=== PATIENT | female | born 1935 | race Caucasian/White ===

== ENCOUNTER 2020-11-23 23:11 | Observation (INO) | payer MEDICARE, BC, SELFPAY ==
--- NOTE | ~2020-11-23 | XR_ITS ---
EXAMINATION: XR chest 2V DATE: 11/23/2020 23:47 INDICATION: Chest pain. Shortness of breath. TECHNIQUE: Frontal and lateral views of the chest were obtained. COMPARISON: Chest 2 views 03/26/2019, CT abdomen and pelvis 09/18/2017 FINDINGS: There is mild atelectasis in the lower lung zones. No pleural effusion or pneumothorax. The heart size is normal. There are changes of anterior fusion procedure in cervical spine. Surgical cli ps in the right upper quadrant are likely from cholecystectomy. IMPRESSION: 1. Mild atelectasis in the lower lung zones. Reviewed, dictated and finalized at location A. RECONDITIONER
[2020-11-23 23:11] VITALS: BP 137/84; PULSE 80; RESP 18; TEMP 36.8; O2SAT 98
--- NOTE | 2020-11-23 23:17 | ECG_ITS ---
Measurements Intervals [place] Rate: 77 P: 16 AR: 148 QRS: -32 QRSD: 106 T: -3 QT: 389 QTc: 441 Interpretive Statements SINUS RHYTHM LEFT AXIS DEVIATION VOLTAGE CRITERIA FOR LVH BORDERLINE R WAVE PROGRESSION, ANTERIOR LEADS BORDERLINE T WAVE ABNORMALITY- INFERIOR LEADS BASELINE ARTIFACT- I, II, III, AVR, AVL, AVF BORDERLINE ECG Electronically Signed On 11-24-2020 6:49:25 [employer] by Constantino Iraheta D.O.
[2020-11-23 23:47] LABS: Basophils Percent Auto 0.4 % (0.2-1.2); Eosinophils Absolute Auto 0.3 K/mm3 (0-0.3); Eosinophils Percent Auto 3.7 % (0-4.4); Hematocrit 39.7 % (37.0-47.0); Hemoglobin 12.3 g/dL (12.0-15.0); Immature Granulocyte Absolute 0.02 K/mm3 (0.00-0.031); Immature Granulocyte Percent A 0.2 % (0-0.5); Lymphocytes Percent Auto 21.3 % (18.3-44.2); Mean Corpuscular Hemoglobin 28.3 pg (26-34); Mean Corpuscular Volume 91.5 fl (80-100); Mean Platelet Volume 10.1 fl (7.4-10.4); Monocytes Absolute Auto 1.2 K/mm3 (0.1-0.6); Monocytes Percent Auto 13.3 % (2.6-8.5); Neutrophils Absolute Auto 5.4 K/mm3 (1.3-6.7); Neutrophils Percent Auto 61.1 % (45.5-73.1); Platelet Count Result 244 k/mm3 (150-375); Red Blood Count 4.34 M/mm3 (4.2-5.4); Red Cell Distribution Width 15.2 % (11.5-14.5); White Blood Count 8.9 K/mm3 (4.5-10.0)
[2020-11-23 23:56] LABS: INR 0.9; Prothrombin Time 12.4 Seconds (11.1-14.7)
[2020-11-23 23:57] LABS: Partial Thromboplastin Time 25.7 SECONDS (22.3-36.8)
[2020-11-23 23:58] LABS: Anion Gap 3 mmol/L (8-16); Blood Urea Nitrogen 28 mg/dL (7-17); Calcium 8.5 mg/dL (8.4-10.2); Carbon Dioxide 33 mmol/L (22-30); Chloride 106 mmol/L (98-107); Estimated CRCL calculation 35 ml/min; Estimated Glomerular Filt Rate 53; Glucose 138 mg/dL (65-105); Potassium 4.7 mmol/L (3.4-5.0); Sodium 142 mmol/L (137-145)
[2020-11-24] VITALS (14 sets, daily range): BP systolic 104–159; BP diastolic 57–96; PULSE 69–77; RESP 14–20; TEMP 35.9–36.5; O2SAT 95–98; BMI 33.7
--- NOTE | 2020-11-24 | ECHO_ITS ---
Patient Info Name: Nirmala Julian Age: 85 years : 1935 Gender: Female Ht: 60 in Wt: 172 lbs BSA: 1.85 m2 HR: 71 bpm BP: 133 / 57 mmHg Heart Rhythm: Sinus Rhythm Technical Quality: Good Exam Date: 11/24/2020 2:36 PM Exam Location: [facility] Pulmonary Patient Status: Outpatient Admit Date: 11/24/2020 Staff Ordering Physician: Angelina Blair PA-C Program Manager Rn: Ammon Krishna, SANTINO, RT Attending Provider: Angelina Blair PA-C Referring Physician: Johnnie JOAQUIN; Exam Type: CA echo dop color flow w con Study Info Indications R07.89 - Other chest pain Complete two-dimensional, color flow and Doppler transthoracic echocardiogram is performed with contrast to opacify the left ventricle and to improve the deliniation of the left ventricle endocardial borders. Summary 1. Left ventricular systolic function is normal, estimated at 60-65%. 2. There is mildly increased left ventricular wall thickness. 3. The left ventricular diastolic function is grade I diastolic dysfunction. 4. There is no aortic valve stenosis. 5. There is mild mitral valve regurgitation. 6. There is mild to moderate tricuspid valve regurgitation. 7. Mild pulmonary hypertension, estimated pulmonary arterial systolic pressure is 37 mmHg. Left Ventricle Left ventricular chamber dimension is normal. Left ventricular systolic function is normal, estimated at 60-65%. There is mildly increased left ventricular wall thickness. The left ventricular diastolic function is grade I diastolic dysfunction. Right Ventricle Right ventricular chamber dimension is normal. Right ventricular systolic function is normal. Left Atria Left atrial chamber dimension is normal. Right Atria Right atrial chamber dimension is normal. Aortic Valve The aortic valve is trileaflet. There is mild aortic valve sclerosis. There is no aortic valve stenosis. There is no aortic valve regurgitation. Pulmonic Valve The pulmonic valve is not well visualized. Mitral Valve The mitral valve has normal leaflets. There is mild mitral valve regurgitation. The mitral valve annulus is mildly calcified. Tricuspid Valve The tricuspid valve leaflets are normal. There is mild to moderate tricuspid valve regurgitation. Mild pulmonary hypertension, estimated pulmonary arterial systolic pressure is 37 mmHg. Pericardium/Pleural The pericardium appears normal. There is trivial pericardial effusion. Inferior Vena Cava Normal inferior vena cava with >50% collapse upon inspiration consistent with normal right atrial pressure, 5 mmHg. Aorta The aortic root size at the sinus of Valsalva is normal. There is mild aortic atherosclerosis. Left Ventricular Outflow Tract Name Value Normal LVOT 2D LVOT Diameter 1.91 cm LVOT Doppler LVOT Peak Gradient 3 mmHg LVOT Mean Gradient 2 mmHg LVOT VTI 23.33 cm LVOT VTI/AV VTI Ratio 0.94 LVOT Stroke Volume 67.04 ml LVOT CO 4.98 l/min LVOT
[2020-11-24 00:10] LABS: Troponin I < 0.012 ng/mL (0.000-0.034)
--- NOTE | 2020-11-24 00:37 | ED.CHESTPAIN ---
HPI - Chest Pain General Chief Complaint: Chest Pain Stated Complaint: left cp 05/09 Time Seen by Provider: 11/23/20 23:23 Source: patient Mode of arrival: EMS Limitations: no limitations History of Present Illness HPI narrative: An 85-year-old female comes into the emergency department from EMS from her nursing facility with complaints of chest pain radiating down to her left arm. Patient states that this started earlier this evening. She notes that she has been uncomfortable enough that she has not been able to go to sleep. Patient states that this does feel somewhat like my other heart attack . The only other history the patient can think of that may be contributing was she did receive her second Covid vaccine today. She notes that she got the shot in the right arm but the pain is going to her left arm however. She denies any other symptoms such as shortness of breath, fatigue, nausea or vomiting. Related Data Home Medications Medication Instructions Recorded Confirmed Zyrtec 10 mg PO DAILY 11/24/20 11/24/20 acidophilus-pectin, citrus cap PO 11/24/20 [Acidophilus Probiotic] alendronate-vitamin D3 1 tablet PO WEEKLY 11/24/20 aluminum-magnesium hydroxide tablet PO 11/24/20 aspirin [Aspir-81] 81 mg PO DAILY 11/24/20 11/24/20 benzonatate 200 mg PO BID 11/24/20 cyclosporine [Restasis] drp 11/24/20 esomeprazole magnesium [Nexium] 40 mg PO DAILY 11/24/20 furosemide [Lasix] 20 mg PO DAILY 11/24/20 hydralazine 11/24/20 hydrocodone-acetaminophen tablet 11/24/20 isosorbide mononitrate 30 mg PO DAILY 11/24/20 11/24/20 levothyroxine 50 mcg PO DAILY 11/24/20 losartan 50 mg PO DAILY 11/24/20 metoprolol succinate 50 mg PO DAILY 11/24/20 11/24/20 mirabegron [Myrbetriq] mg PO 11/24/20 montelukast [Singulair] 10 mg PO DAILY 11/24/20 11/24/20 xnxanzjlvcdd-Ct-hzkm-minerals tablet PO 11/24/20 [Multivitamin-Calcium and Iron] rosuvastatin [Crestor] 20 mg PO DAILY 11/24/20 solifenacin [Vesicare] 5 mg PO DAILY 11/24/20 11/24/20 vitamin B complex [B 1 tablet PO DAILY 11/24/20 11/24/20 Complex-Vitamin B12] Allergies Allergy/AdvReac Type Severity Reaction Status Date / Time adhesive Allergy Unknown Verified 09/18/17 03:56 levofloxacin Allergy Unknown Unverified 09/18/17 03:56 methylprednisolone Allergy Unknown Unverified 09/18/17 03:56 metronidazole Allergy Unknown Verified 09/18/17 03:56 CORTICOSTEROIDS Allergy Unknown Uncoded 01/12/09 14:08 Review of Systems Review of Systems: Narrative: CONSTITUTIONAL: Denies fever, chills, or sweats. EYES: Denies visual changes, redness, or discharge. ENT: Denies rhinorrhea, congestion, sore throat, or otalgia. CARDIOVASCULAR: Denies palpitations, or edema. Endorses chest pain. RESPIRATORY: Denies cough or dyspnea. GASTROINTESTINAL: Denies abdominal pain, nausea, vomiting, or diarrhea. GENITOURINARY: Denies dysuria or hematuria. SKIN: Denies rash or itching. MUSCULOSKELETAL: Denies back pain, joint pain, or myalgia. NEUROLOGIC: Denies headache, numbness, dizziness, or weakness. PSYCHIATRIC: Denies anxiety or depression. Exam Narrative: Exam Narrative: GENERAL: Well-appearing, well-nourished, and in no acute distress. HEAD: Normocephalic, atraumatic. EYES: PERRLA and EOMI. ENT: Nares clear, no rhinorrhea or epistaxis. Mucous membranes moist. NECK: Supple. No adenopathy or masses. No carotid bruits or JVD CHEST: Clear to auscultation. No respiratory distress. No wheezes rales or rhonchi HEART: Regular rate and rhythm. No murmur heard. Normal peripheral pulses. ABDOMEN: Soft, nontender, nondistended, normal active bowel sounds. EXTREMITIES: Normal range of motion. No edema. SKIN: Warm, dry, no rash. NEURO: No focal deficits. Alert and oriented x3. PSYCH: Normal mood and affect. Course Reevaluation(s) Reevaluation #1: Patient updated and provided information. Informed her of plan to observe. Time: 02:22 Consultations Consultation #1: Discussed with PIPPA [place] for hosp
[2020-11-24] MEDS: ASPIRIN 81 MG CHEWABLE TABLET 324 MG PO (02:24)
[2020-11-24] MEDS: NITROGLYCERIN SL 0.4 MG TABLET SUBLINGUAL (02:24)
--- NOTE | 2020-11-24 03:10 | PC.NURSE ---
second nitro sl given [id number] ,
[2020-11-24 05:02] LABS: Troponin I < 0.012 ng/mL (0.000-0.034)
--- NOTE | 2020-11-24 05:27 | ADMGEN ---
This patient, Nirmala Julian, was admitted to IMU Room 205-01. Patient/family oriented to hospital policies and general routines including ID bracelet, bed and alarms, visiting hours, pain management, procedures, bathroom and other care routines, personal items, smoking policy, room service/diet, and visiting hours. Information on how to activate the Rapid Response Team has been discussed. Patient/Family are encouraged to report perceived risks to care and to ask questions if they do not understand what they are told or what they should do.
[2020-11-24 08:11] LABS: Troponin I 0.019 ng/mL (0.000-0.034)
[2020-11-24] MEDS: FUROSEMIDE 20 MG TABLET PO (11:37)
[2020-11-24] MEDS: ASPIRIN 81 MG ENTERIC TABLET PO (11:37)
[2020-11-24] MEDS: MAGNESIUM OXIDE 400 MG TABLET PO (11:37)
[2020-11-24] MEDS: LOSARTAN POTASSIUM 50 MG TABLET PO (11:37)
[2020-11-24] MEDS: METOPROLOL SUCCINATE EXT REL 50 MG TABCR PO (11:37)
[2020-11-24] MEDS: HYDROcodone/acetaminophen (*CRX) 10-325 MG TABLET 1 TAB PO (11:39)
--- NOTE | 2020-11-24 13:51 | PM.IMPN ---
Progress Note: A&P Time Spent With Patient Time with patient: 25 - 35 minutes Subjective Date/time seen: 11/24/20 13:51 Review of Systems Review of Systems: All systems reviewed & are unremarkable except as noted in HPI and below Objective Data Vital Signs Vital Signs: Vital Signs - 24 hr 11/23/20 23:11 11/24/20 00:09 11/24/20 02:23 Temperature 98.2 F Pulse Rate 80 76 75 Respiratory Rate 18 20 14 Blood Pressure 137/84 104/62 147/64 H Pulse Oximetry 98 95 97 11/24/20 02:35 11/24/20 03:43 11/24/20 04:25 Temperature Pulse Rate 76 70 75 Respiratory Rate 18 18 18 Blood Pressure 117/67 113/60 129/66 Pulse Oximetry 95 95 11/24/20 05:15 11/24/20 06:00 11/24/20 06:40 Temperature 96.7 F L 96.7 F L Pulse Rate 72 74 72 Respiratory Rate 20 20 Blood Pressure 130/96 H 130/96 H Pulse Oximetry 98 98 11/24/20 08:00 11/24/20 09:38 11/24/20 12:00 Temperature 97.5 F L 97.5 F L Pulse Rate 74 72 Respiratory Rate 18 16 Blood Pressure 133/57 L 159/67 H Pulse Oximetry 96 96 96 Intake/Output Intake/Output: Intake & Output 11/21/20 11/22/20 11/23/20 11/24/20 23:59 23:59 23:59 23:59 Output Total 500 Balance -500 Meds/Results Medications: Active Medications Generic Name Dose Route Start Last Admin Trade Name Freq PRN Reason Stop Dose Admin Acetaminophen 500 mg 11/24/20 10:37 Acetaminophen 500 Mg Tablet PO Q6H PRN Pain 1-6 Hydrocodone Bitart/Acetaminophen 1 tab 11/24/20 10:37 11/24/20 11:39 Hydrocodone/Acetaminophen (*Crx) 10-325 Mg Tablet PO 1 tab Q8H PRN Administration Pain 7-10 Aspirin 81 mg 11/24/20 10:40 11/24/20 11:37 Aspirin 81 Mg Enteric Tablet PO 81 mg DAILY NATALIA Administration Cyclosporine 1 drop 11/25/20 09:00 Cyclosporine 0.4 Ml Ophth Solution EACH EYE DAILY NATALIA Fluticasone Propionate 1 spray 11/25/20 09:00 Fluticasone Propionate 0.05% Na Spr 16 Gm Btl (*Bkc) NASAL DAILY NATALIA Furosemide 20 mg 11/24/20 10:40 11/24/20 11:37 Furosemide 20 Mg Tablet PO 20 mg DAILY NATALIA Administration Levothyroxine Sodium 50 mcg 11/25/20 06:30 Levothyroxine Sodium 50 Mcg Tablet PO DAILY@0630 [facility] Loratadine 10 mg 11/25/20 09:00 Loratadine 10 Mg Tablet PO DAILY NATALIA Losartan Potassium 50 mg 11/24/20 10:40 11/24/20 11:37 Losartan Potassium 50 Mg Tablet PO 50 mg DAILY NATALIA Administration Magnesium Oxide 400 mg 11/24/20 10:40 11/24/20 11:37 Magnesium Oxide 400 Mg Tablet PO 400 mg DAILY NATALIA Administration Metoprolol Succinate 50 mg 11/24/20 10:40 11/24/20 11:37 Metoprolol Succinate Ext Rel 50 Mg Tabcr PO 50 mg DAILY NATALIA Administration Montelukast Sodium 10 mg 11/25/20 09:00 Montelukast Sodium 10 Mg Tablet PO DAILY [facility] Nitroglycerin 0.4 mg 11/24/20 10:37 Nitroglycerin Sl 0.4 Mg Tablet SUBLINGUAL Q5MIN PRN Chest Pain Pantoprazole Sodium 40 mg 11/25/20 09:00 Pantoprazole 40 Mg Tablet PO DAILY [facility] Radiology Results: ITS Impressions Chest X-Ray 11/23/20 23:49 IMPRESSION: 1. Mild atelectasis in the lower lung zones. Labs Labs: Laboratory Results - last 24 hr 11/23/20 11/23/20 11/23/20 23:36 23:36 23:36 WBC 8.9 RBC 4.34 Hgb 12.3 Hct 39.7 MCV 91.5 MCH 28.3 MCHC 31.0 L RDW 15.2 H Plt Count 244 MPV 10.1 Immature Gran % (Auto) 0.2 Neut % (Auto) 61.1 Lymph % (Auto) 21.3 [place] % (Auto) 13.3 H Eos % (Auto) 3.7 Baso % (Auto) 0.4 Lymph # (Auto) 1.90 [place] # (Auto) 1.2 H Eos # (Auto) 0.3 Baso # (Auto) 0.0 Abs Immat Gran (auto) 0.02 Absolute Neuts (auto) 5.4 Absolute Nucleated RBC 0.0 Nucleated RBC % 0.0 PT 12.4 INR 0.9 APTT 25.7 Sodium 142 Potassium 4.7 Chloride 106 Carbon Dioxide 33 H Anion Gap 3 L BUN 28 H Creatinine 1.00 Estim Creat Clear Calc 35 Estimated GFR 53 L Glucose 138 H
[2020-11-24] MEDS: PERFLUTREN LIPID MICROSPHERES 1.5 ML VIAL DILUTED TO 10 ML TOTAL VOLUME IV PUSH (15:00)
--- NOTE | 2020-11-24 15:14 | PM.CNCAR ---
Assessment and Plan Assessment and plan (1) Chest pain: Qualifiers: Chest pain type: chest pain due to myocardial ischemia Ischemic chest pain type: stable angina pectoris Qualified Code(s): I20.8 - Other forms of angina pectoris Code(s): R07.9 - Chest pain, unspecified Status: Acute Assessment and Plan: Resolved with sublingual nitroglycerin, atypical occurring at rest no exacerbating symptoms. Ruled out for myocardial infarction with negative serial enzymes, no ischemic changes on EKG. History of CAD with remote myocardial infarction and stent implantation. Last stress test 2017 no ischemia with preserved EF. Patient feels well, at her baseline no recurrence of symptoms. Patient wishes to be discharged home and will follow-up with Dr. Subramanian in the office as an outpatient in 1 month with Lexiscan nuclear perfusion stress test in the interval period notify the office immediately with recurrence of chest pain. Continue isosorbide mononitrate 30 mg daily. Patient's chest pain persisted for 1 hour on 1 occasion. Concern regarding fall risk so will not increase Imdur at this time unless recurrent symptoms. Disposition per hospitalist service. Will review 2D echocardiogram with recommendations to follow. (2) CAD (coronary artery disease): Code(s): I25.10 - Atherosclerotic heart disease of [place] coronary artery without angina pectoris Status: Acute Assessment and Plan: As above. Continue aspirin 81 mg daily, metoprolol, rosuvastatin (3) Hypertension: Code(s): I10 - Essential (primary) hypertension Status: Acute Assessment and Plan: Continue losartan (4) Diabetes mellitus: Code(s): E11.9 - Type 2 diabetes mellitus without complications Status: Acute Assessment and Plan: Per primary service. (5) History of CVA (cerebrovascular accident): Code(s): Z86.73 - Personal history of transient ischemic attack (TIA), and cerebral infarction without residual deficits Status: Acute Assessment and Plan: Not an anticoagulation candidate given history of GI bleed and recurrent hemorrhoidal bleeding for years. (6) History of atrial fibrillation: Code(s): Z86.79 - Personal history of other diseases of the circulatory system Status: Acute Assessment and Plan: Currently sinus rhythm. Continue medical therapy. Patient aware she is at increased risk for stroke off anticoagulation. (7) History of GI bleed: Code(s): Z87.19 - Personal history of other diseases of the digestive system Status: Acute Assessment and Plan: As above. History of Present Illness History of Present Illness Consult date/time: Date of service: 11/24/20 15:14 Cardiology consultation at the request of Dr. Jackson of the Emergency Department for our opinion regarding chest pain. Requesting physician: Joshua Jackson DO Consult reason: chest pain Reason For Visit: Acute chest pain Narrative: Patient is a very pleasant 85-year-old female with a past medical history significant for remote myocardial infarction status post drug-eluting stent to LAD, 12/20/2006 at [facility], reported history of paroxysmal atrial fibrillation not a candidate for anticoagulation due to history of GI bleed, history of CVA, type 2 diabetes mellitus, hypertension, dyslipidemia who states she had her 2nd COVID vaccination in her right arm earlier but presented to the emergency department at the behest of nurses at her living facility due to complaints of chest pain. Patient describes central substernal chest heaviness, mild in severity not responsive to sublingual nitroglycerin x3 at home. Patient admits her nitroglycerin was old and . She was given 2 nitroglycerin in the emergency department with ventral resolution of her chest pain. She states this is somewhat similar but no where near as severe as chest pain associated with her prior
[2020-11-24 16:14] LABS: Troponin I < 0.012 ng/mL (0.000-0.034)
--- NOTE | 2020-11-24 16:24 | PM.SD2 ---
Same Day Admit/Disch: HPI History of Present Illness Chief complaint: Acute chest pain Narrative: Nirmala Julian is a 85 year old female with a past medical history of coronary artery disease with stent in 2006, Atrial fibrillation not on anticoagulation due to GI bleed, diet-controlled diabetic,hypertension, hyperlipidemia, and hypothyroidism who presented emergency room for chest pain. Patient states that she was in her usual state of health and started having chest pain. This occurred while she was sitting and also when she was moving. She said the pain was a pressure-like pain that lasted intermittently for 5-6 hours. She had no shortness of breath or diaphoresis with this but did have some left arm pain. She had no alleviating or aggravating factors. She did say she felt a little warm during this time but thought it could be due to anxiety. She just had her 2nd COVID-19 vaccine but does not think it has anything to do with it. she denied diarrhea, constipation, fevers, chills, nausea or vomiting with this. She said the pain went away when she got the nitro at the hospital. Patient states that it felt somewhat like her previous heart attack but also little different. She said that she had a stent in 2006 and it is reported that she had a last stress test in 2017. She has not had any recurring symptoms since being admitted and would prefer to get further workup outpatient. [facility] Past Medical History Medical History (Updated 11/24/20 @ 16:30 by Angelina Blair PA-C) CAD (coronary artery disease) Chest pain Diabetes mellitus GERD (gastroesophageal reflux disease) History of atrial fibrillation History of cancer of ureter History of CVA (cerebrovascular accident) HLD (hyperlipidemia) Hypertension Surgical History Surgical History (Updated 11/24/20 @ 16:30 by Angelina Blair PA-C) History of appendectomy History of cholecystectomy History of hysterectomy Family History Family History (Updated 11/24/20 @ 16:31 by Angelina Blair PA-C) Mother Dementia Father Acute myocardial infarction age 50 Social History Social History (Updated 11/24/20 @ 16:32 by Angelina Blair PA-C) Social History: patient has never smoked but has been around secondhand smoke. She does not drink alcohol. she would like to be a full code the and her daughter to be the decision maker if something were to happen to her. Smoking status: Never smoker Alcohol intake: never Substance use: never Spiritual care concerns: No Same Day Admit/Disch: Med Pre-admit Medications Home Medications Medication Instructions Recorded Confirmed Type Zyrtec 10 mg PO DAILY 11/24/20 11/24/20 History acetaminophen 500 mg PO Q6H PRN 11/24/20 11/24/20 History acidophilus-pectin, citrus 1 cap PO DAILY 11/24/20 11/24/20 History [Acidophilus Probiotic] alendronate-vitamin D3 1 tablet PO WEEKLY 11/24/20 11/24/20 History aluminum-magnesium hydroxide 1 tablet PO DAILY 11/24/20 11/24/20 History aspirin [Aspir-81] 81 mg PO DAILY 11/24/20 11/24/20 History baclofen 40 mg PO DAILY 11/24/20 11/24/20 History benzonatate 200 mg PO BID 11/24/20 11/24/20 History calcium carbonate-vitamin D3 [All 1 tablet PO DAILY 11/24/20 11/24/20 History Day Calcium] cyclosporine [Restasis] 1 drp EACH EYE DAILY 11/24/20 11/24/20 History esomeprazole magnesium [Nexium] 40 mg PO DAILY 11/24/20 11/24/20 History fluticasone propionate 1 spray INTRANASAL DAILY 11/24/20 11/24/20 History furosemide [Lasix] 20 mg PO DAILY 11/24/20 11/24/20 History hydralazine 25 mg PO Q6H PRN 11/24/20 11/24/20 History hydrocodone-acetaminophen 1 tablet PO Q8H PRN 11/24/20 11/24/20 History isosorbide mononitrate 30 mg PO DAILY 11/24/20 11/24/20 History levothyroxine 50 mcg PO DAILY 11/24/20 11/24/20 History losartan 50 mg PO DAILY 11/24/20 11/24/20 History magnesium 400 mg PO DAILY 11/24/20 11/24/20 History metoprolol succinate 50 mg PO DAILY 11/24/20 11/24/20 History mirabegr
== END 2020-11-24 18:35 ==
LOC: ANHED 11-24 03:43 → ANHIMU 11-24 04:47
PROVIDERS: Emergency Medicine; Internal Medicine Cardiovascular Disease; Admitting Provider Family Medicine; Emergency Provider Emergency Medicine; PCP Internal Medicine; Visit Provider Internal Medicine
DX: R07.9 Chest pain, unspecified (principal); I25.10 Atherosclerotic heart disease of native coronary artery without angina pectoris; I48.91 Unspecified atrial fibrillation; I25.2 Old myocardial infarction; E11.9 Type 2 diabetes mellitus without complications; E78.5 Hyperlipidemia, unspecified; E03.9 Hypothyroidism, unspecified; I10 Essential (primary) hypertension; Z86.73 Personal history of transient ischemic attack (TIA), and cerebral infarction without residual deficits; Z95.5 Presence of coronary angioplasty implant and graft; Z85.54 Personal history of malignant neoplasm of ureter
CPT/HCPCS: 36415; 71046; 80048; 84484; 85025; 85610; 85730; 93005; 96374; 99285; A9270; C8929; G0378; Q9957

== ENCOUNTER 2020-12-25 02:20 | Inpatient (IN) | payer MEDICARE, BC, SELFPAY ==
[2020-12-25] VITALS (7 sets, daily range): BP systolic 100–139; BP diastolic 49–73; PULSE 66–84; RESP 16–20; TEMP 36.1–37.3; O2SAT 92–99; BMI 30.2
--- NOTE | ~2020-12-25 | XR_ITS ---
XR chest 2V 12/27/2020 08:47 Indication: Fever and cough Procedure: AP and lateral views of the chest Comparison: Comparison to multiple prior studies sequentially, with oldest reviewed study dated 02/09. Findings: Cardiomegaly. Left basilar atelectasis. No focal air space disease, pulmonary edema, pleura l effusion or suspected pneumothorax. There are advanced degenerative changes of the shoulders. Osteo penia. Impression: 1: Left basilar atelectasis. 2: Cardiomegaly. Reviewed, dictated and finalized at location D. Impression: 1: Left basilar atelectasis. 2: Cardiomegaly.
--- NOTE | 2020-12-25 02:40 | ADMGEN ---
This patient, Nirmala Julian, was admitted to 2 Medical Room 251-01 12/25/20 @ 0220. Patient/family oriented to hospital policies and general routines including ID bracelet, bed and alarms, visiting hours, pain management, procedures, bathroom and other care routines, personal items, smoking policy, room service/diet, and visiting hours. Information on how to activate the Rapid Response Team has been discussed. Patient/Family are encouraged to report perceived risks to care and to ask questions if they do not understand what they are told or what they should do.
[2020-12-25] MEDS: SODIUM CHLORIDE 0.9% IV 1,000 ML 100 ML IV CONT (02:43)
[2020-12-25 03:01] LABS: Anion Gap 5 mmol/L (8-16); Blood Urea Nitrogen 27 mg/dL (7-17); Calcium 8.1 mg/dL (8.4-10.2); Carbon Dioxide 27 mmol/L (22-30); Chloride 108 mmol/L (98-107); Estimated Glomerular Filt Rate 60; Glucose 130 mg/dL (65-105); Potassium 4.3 mmol/L (3.4-5.0); Sodium 140 mmol/L (137-145)
[2020-12-25 05:22] LABS: Hematocrit 33.8 % (37.0-47.0); Hemoglobin 10.5 g/dL (12.0-15.0); Mean Corpuscular HGB Conc 31.1 g/dl (32-36); Mean Corpuscular Hemoglobin 28.3 pg (26-34); Mean Corpuscular Volume 91.1 fl (80-100); Mean Platelet Volume 10.8 fl (7.4-10.4); Platelet Count Result 226 k/mm3 (150-375); Red Blood Count 3.71 M/mm3 (4.2-5.4); Red Cell Distribution Width 15.5 % (11.5-14.5)
--- NOTE | 2020-12-25 05:55 | PM.IMHP ---
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 She reports that she has had difficulty passing stools ever since she had her daughter over 60 years ago. She reported that when she delivered her daughter it caused erectile injury for which she had to have 3 surgical repairs to correct. She has a history of chronic hemorrhoids. She also has a history of a gastric polyp that was removed last year. The patient reports that she has had intermittent rectal bleeding for years. Over the last couple of months her rectal bleeding has become so significant that she cannot get it to stop on her own. Over the last 4 days she is bleeding every day and at times the extent of her bleeding is quite significant. She reports that she is filling the toilet with blood. She has been having decreased energy. her hemoglobin in October was 12.3 and her repeat hemoglobin in the outside facility was 10. She reports that her stools are frequently hard and that she frequently has to region and disimpact herself. She does take stool softeners and MiraLax every other day. She will occasionally have softer stools. She reports pain with each and every bowel movement. A rectal bleeding is usually a slow dripping. She will pass blood even without passing stool. She will often have long strings of blood clot. She does report chronic abdominal pain that is generalized. On palpation she now has new abdominal pain in her right periumbilical region. She reports that she knows that she has a left ventral hernia. She follows with a agronomy teacher that goes to a clinic in [place] and works out of [facility] in [place]. [facility] did not have any beds available and subsequently the patient was transferred to our facility. She reports that she last had a colonoscopy about a year ago and an EGD as well. She reports that she will often have difficulty swallowing solid food. She will occasionally have to vomit up the food when she cannot swallow it. She states that at that occurs mostly when she eats too fast. She does not have any difficulty swallowing liquids. 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 She had a MRI and is followed by a agronomy teacher at [facility] as well. 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 She does occasionally have some nausea with eating but denies any nausea currently. She also has a chronic cough for the last 2 years for which she has been followed with a batterboard setter at [facility]. Her cough is unchanged from baseline. She has not been having any fevers or chills. She had her for COVID vaccine 11/02/2020 under 2nd on 11/23/2020. She sleeps in a recliner at home due to comfort and this also helps with her shortness of breath. She has chronic dependent edema of her left lower extremity since childhood when she had her stroke. She does have some dependent edema over left upper extremity as well. She has chronic debilitating knee pain due to osteoarthritis with deterioration over femoral head for which she is not a candidate for replacement due to her debilitated condition. She also has severe arthritis of the left knee as well. Review of Systems Review of Systems: Narrative: 12 systems were reviewed with pertinent positives and negatives per HPI. Except as documented in the HPI, all other systems were reviewed and are negative. [facility] Past Medical History Medical History (Updated 12/25/20 @ 06:42 by Rebecca Cox DO) CAD (coronary willa
[2020-12-25] MEDS: LEVOTHYROXINE SODIUM 50 MCG TABLET PO (07:51)
[2020-12-25] MEDS: polyethylene glycoL 3350 17 GM POWD.PACK PO (08:31)
[2020-12-25] MEDS: BACLOFEN 10 MG TABLET 20 MG PO ×2 (08:34→21:05)
[2020-12-25] MEDS: ACIDOPHILUS/BULGARICUS CHEWABLE TABLET 1 TABLET PO (08:34)
[2020-12-25] MEDS: cycloSPORINE 0.4 ML OPHTH SOLUTION 1 DROP EACH EYE (08:34)
[2020-12-25] MEDS: LOSARTAN POTASSIUM 50 MG TABLET PO (08:35)
[2020-12-25] MEDS: FUROSEMIDE 20 MG TABLET PO (08:35)
[2020-12-25] MEDS: DOCUSATE SODIUM 100 MG CAPSULE PO ×2 (08:35→21:05)
[2020-12-25] MEDS: ISOSORBIDE MONONITRATE 30 MG TAB.ER.24H PO (08:35)
[2020-12-25] MEDS: LORATADINE 10 MG TABLET PO (08:35)
[2020-12-25] MEDS: FLUTICASONE PROPIONATE 0.05% NA SPR 16 GM BTL (*BKC) 1 SPRAY NASAL (08:35)
[2020-12-25] MEDS: MAGNESIUM OXIDE 400 MG TABLET PO (08:35)
[2020-12-25] MEDS: ROSUVASTATIN 10 MG TABLET 20 MG PO (08:36)
[2020-12-25] MEDS: THERAPEUTIC MULTIVITAMINS/MINERALS TAB (*BKC) 1 TABLET PO (08:36)
[2020-12-25] MEDS: MONTELUKAST SODIUM 10 MG TABLET PO (08:36)
[2020-12-25] MEDS: MIRABEGRON 50 MG ER TABLET PO (08:36)
[2020-12-25] MEDS: METOPROLOL SUCCINATE EXT REL 50 MG TABCR PO (08:36)
[2020-12-25] MEDS: SOLIFENACIN 5 MG TABLET PO (08:36)
[2020-12-25] MEDS: PANTOPRAZOLE 40 MG TABLET PO (08:36)
--- NOTE | 2020-12-25 09:45 | PM.IMPN ---
Progress Note: A&P Assessment and Plan (1) Lower GI bleed: Code(s): K92.2 - Gastrointestinal hemorrhage, unspecified Status: Acute Assessment and Plan: Lower GI bleed most likely due to patient's chronic constipation and hemorrhoids. Longstanding issue for patient, but she now reports worsening symptoms and blood loss recently. Dr. Davis Consulted from ED and plans for EGD/colonoscopy tomorrow for further evaluation. Abdominal pain likely secondary to constipation As above, plans for EGD and colonoscopy tomorrow per Dr. Ware Continue CLD Miralax Q12hr and docusate Q12hr for now Will monitor serial H&Hs. Transfuse prn Will d/c IV fluids as she is tolerating diet and to avoid volume overload in setting of her diastolic CHF Monitor vitals/labs closely (2) Anemia: Code(s): D64.9 - Anemia, unspecified Status: Acute Assessment and Plan: Normocytic. Likely 2/2 above. Hgb now 10.5 today. Please see above a/p (3) Constipation: Qualifiers: Constipation type: unspecified constipation type Qualified Code(s): K59.00 - Constipation, unspecified Code(s): K59.00 - Constipation, unspecified Status: Acute Assessment and Plan: Likely etiology behind abdominal pain. Miralax and docusate Q12hr for now GI following and appreciate recommendations (4) Hypertension: Code(s): I10 - Essential (primary) hypertension Status: Acute Assessment and Plan: Most recent BP 130s sys Continue home antihypertensives Monitor; adjust as appropriate (5) CAD (coronary artery disease): Code(s): I25.10 - Atherosclerotic heart disease of [place] coronary artery without angina pectoris Status: Acute Assessment and Plan: No acute issues at this moment; denies chest pain today. Has had occasional intermittent chest pain in the past couple weeks that was relieved by her SL nitro Continue home meds Monitor closely (6) History of atrial fibrillation: Code(s): Z86.79 - Personal history of other diseases of the circulatory system Status: Acute Assessment and Plan: Rate controlled. 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 Patient feels okay, but still dizzy/lightheaded when ambulating. She still reporting blood in stools and clots. She still has constant abdominal pain, although appears to be moving, now primarily to RUQ, but also left sided pain. No N/v. Tolerating CLD. No other complaints at the moment. Denies f/c/s, current cp/palpitations, changes in her sob, dysuria, calf pain. Review of Systems Review of Systems: All systems reviewed & are unremarkable except as noted in HPI and below Exam Narrative: Exam Narrative: General: Patient sitting up in chair in no acute distress; finishing breakfast CLD. HEENT: Normocepha
--- NOTE | 2020-12-25 09:57 | WPDGICN ---
Assessment and Plan Assessment and plan (1) Lower GI bleed: Code(s): K92.2 - Gastrointestinal hemorrhage, unspecified Status: Acute Assessment and Plan: I was called by ER physician working at [place] and patient was transferred here (they did not have GI in staff this weekend) differential diagnosis include diverticular bleeding, hemorrhoids, AVM's, etc will proceed tomorrow with sigmoidoscopy (she had colonoscopy last year ago elsewhere) (2) Rectal bleeding: Code(s): K62.5 - Hemorrhage of anus and rectum Status: Acute Assessment and Plan: monitor hb (3) Colon, diverticulosis: Code(s): K57.30 - Diverticulosis of large intestine without perforation or abscess without bleeding Status: Acute Assessment and Plan: diverticular bleed could be another source, evaluate with scope (4) Hemorrhoid: Code(s): K64.9 - Unspecified hemorrhoids Status: Acute Assessment and Plan: if large internal hemorrhoids, then will offer tomorrow also IRC treatment (5) Dysphagia: Code(s): R13.10 - Dysphagia, unspecified Status: Acute Assessment and Plan: she is having more difficulty swallowing, will do egd and consider dilation based on findings (6) Constipation: Qualifiers: Constipation type: unspecified constipation type Qualified Code(s): K59.00 - Constipation, unspecified Code(s): K59.00 - Constipation, unspecified Status: Acute Assessment and Plan: on meds at home (7) History of CVA (cerebrovascular accident): Code(s): Z86.73 - Personal history of transient ischemic attack (TIA), and cerebral infarction without residual deficits Status: Acute GI Consult Note Consult date/time: 12/25/20 09:57 Reason for consult: rectal bleed, dysphagia HPI: Nirmala Julian is a 85 year old female with history of CVA, coronary artery disease, CHF, atrial fibrillation no longer on anticoagulation due to recurrent GI bleeding (only on baby aspirin now) who initially went to the ER at [facility] in [place] due to intermittent rectal bleeding for few years but last few days persistent and more heavy than normal filling up toilet, also normally she has constipation using restroom daily but only small and hard stool, incomplete evacuation sometimes will have to disimpact herself and taking miralax and colace at home. She has seen a GI doctor in [place] and had colonoscopy with EGD last year, told that had hemorrhoids and also a gastric polyp removed but then she developed dysphagia (she does not think that her esophagus was stretched out, saying that has difficulty swallowing and sometimes solid food coming back up and belching). CT scan a/p at [place] reviewed, showed diverticulosis and constipation, I was called by ER doctor last night because they did not have GI doctor in staff and [facility], where her GI doctor normally works, did not have any beds available either, requested transfer here. Hospitalist team evaluated patient today as direct admission. Also her Hb few months ago 12.3, now 10. Review of Systems Constitutional: Constitutional: Denies chills Eyes: Eyes: Denies blurry vision ENT: Reports Normal hearing present Cardiovascular: Cardiovascular: Denies chest pain Respiratory: Respiratory: Reports cough Gastrointestinal: Gastrointestinal: Reports hematochezia and Reports dysphagia Genitourinary: Genitourinary: Denies hematuria Musculoskeletal: Musculoskeletal: Denies neck pain Integumentary/Breasts: Skin/Breast: Denies dry skin Neurologic: Denies headache(s) Psychiatric: Psychiatric: Denies behavioral changes Hematologic/Lymphatic: Hematologic/Lymphatic: Reports easy bleeding (she says that tends to bleed easily) [facility] Past Medical History Medical History (Updated 12/25/20 @ 10:22 by Giovany Davis MD) CAD (coronary artery disease) CHF (congestive heart failure) [facility]
[2020-12-25] MEDS: HYDROcodone/acetaminophen (*CRX) 5-325 MG TABLET 1 TAB PO (10:40)
[2020-12-25 12:21] LABS: Hematocrit 32.1 % (37.0-47.0)
[2020-12-25 12:42] LABS: Glucose Point of Care 131 (65-105)
[2020-12-25] MEDS: BISACODYL 5 MG TABLET EC 20 MG PO (16:07)
[2020-12-25] MEDS: polyethylene glycoL 3350 238 GM BOTTLE PO (16:09)
[2020-12-25 16:15] LABS: Glucose Point of Care 123 (65-105)
--- NOTE | 2020-12-25 17:53 | PC.NURSE ---
Patient vomited large amount after drinking some of her Miralax bowel prep. Patient c/o nausea. Called Dr. Davis and left voice message on his cell phone notifying him of same. Awaiting further orders. Patient states she will wait awhile and try to tolerate more of the bowel prep.
[2020-12-25 18:33] LABS: Hematocrit 31.1 % (37.0-47.0); Hemoglobin 9.6 g/dL (12.0-15.0)
[2020-12-25] MEDS: MAGNESIUM CITRATE 300 ML BTL PO (20:04)
[2020-12-25] MEDS: ONDANSETRON INJ 4 MG/2 ML VIAL IV PUSH (20:05)
[2020-12-25] MEDS: ACETAMINOPHEN 325 MG TABLET 650 MG PO (21:05)
[2020-12-25 21:11] LABS: Glucose Point of Care 128 (65-105)
[2020-12-26] VITALS (12 sets, daily range): BP systolic 109–154; BP diastolic 50–68; PULSE 67–107; RESP 16–24; TEMP 36.1–37.3; O2SAT 95–100
[2020-12-26 00:56] LABS: Hematocrit 31.2 % (37.0-47.0); Hemoglobin 9.7 g/dL (12.0-15.0)
[2020-12-26] MEDS: ONDANSETRON INJ 4 MG/2 ML VIAL IV PUSH (04:59)
[2020-12-26 05:33] LABS: Basophils Percent Auto 0.4 % (0.2-1.2); Eosinophils Absolute Auto 0.1 K/mm3 (0-0.3); Eosinophils Percent Auto 0.8 % (0-4.4); Hematocrit 30.2 % (37.0-47.0); Hemoglobin 9.4 g/dL (12.0-15.0); Immature Granulocyte Absolute 0.03 K/mm3 (0.00-0.031); Immature Granulocyte Percent A 0.3 % (0-0.5); Lymphocytes Absolute Auto 1.38 K/mm3 (0.9-3.2); Lymphocytes Percent Auto 14.5 % (18.3-44.2); Mean Corpuscular HGB Conc 31.1 g/dl (32-36); Mean Corpuscular Hemoglobin 28.4 pg (26-34); Mean Corpuscular Volume 91.2 fl (80-100); Mean Platelet Volume 10.4 fl (7.4-10.4); Monocytes Absolute Auto 1.2 K/mm3 (0.1-0.6); Monocytes Percent Auto 12.1 % (2.6-8.5); Neutrophils Absolute Auto 6.8 K/mm3 (1.3-6.7); Neutrophils Percent Auto 71.9 % (45.5-73.1); Platelet Count Result 223 k/mm3 (150-375); Red Blood Count 3.31 M/mm3 (4.2-5.4); Red Cell Distribution Width 15.6 % (11.5-14.5); White Blood Count 9.5 K/mm3 (4.5-10.0)
[2020-12-26 05:39] LABS: Prothrombin Time 13.5 Seconds (11.1-14.7)
[2020-12-26 05:40] LABS: Partial Thromboplastin Time 26.9 SECONDS (22.3-36.8)
[2020-12-26 05:44] LABS: Hemoglobin A1C 6.7 % (<5.7)
[2020-12-26 05:45] LABS: Potassium 4.2 mmol/L (3.4-5.0)
[2020-12-26 05:59] LABS: Anion Gap 3 mmol/L (8-16); Blood Urea Nitrogen 20 mg/dL (7-17); Calcium 8.4 mg/dL (8.4-10.2); Carbon Dioxide 29 mmol/L (22-30); Chloride 107 mmol/L (98-107); Estimated CRCL calculation 34 ml/min; Estimated Glomerular Filt Rate 47; Glucose 137 mg/dL (65-105); Magnesium 2.1 mg/dL (1.6-2.3); Sodium 139 mmol/L (137-145)
[2020-12-26] MEDS: LEVOTHYROXINE SODIUM 50 MCG TABLET PO (06:16)
[2020-12-26] MEDS: FLUTICASONE PROPIONATE 0.05% NA SPR 16 GM BTL (*BKC) 1 SPRAY NASAL (08:21)
[2020-12-26] MEDS: METOPROLOL SUCCINATE EXT REL 50 MG TABCR PO (08:23)
[2020-12-26] MEDS: cycloSPORINE 0.4 ML OPHTH SOLUTION 1 DROP EACH EYE (09:14)
--- NOTE | 2020-12-26 09:50 | PC.NURSE ---
Report rehabilitator to [facility]. TO [facility] via [facility].
[2020-12-26] MEDS: LACTATED RINGERS 1,000 ML 150 ML IV CONT (10:33)
--- NOTE | 2020-12-26 10:40 | WPDANESEPPF ---
Anes - Initial Pre Proc Eval Procedure: Operation Date: 12/26/20 15:15 Proposed Procedures p Esophagogastroduodenoscopy & Colonoscopy - Giovany Davis MD s Possible C Hemorrhoid Treatment - Giovany Davis MD Date/Time: 12/26/20 10:40 Surgeon: Angelina Blair PA-C Pre Op Diagnosis: Lower gi bleed Patient Data Age: 85 Gender: F Height: 5 ft 3 in Weight: 77.3 kg Last Vital Signs Temp 99.1 F 12/26/20 10:15 Pulse 85 12/26/20 10:15 Resp 20 12/26/20 10:15 BP 154/60 H 12/26/20 10:15 Pulse Ox 98 12/26/20 10:15 Allergies Allergy/AdvReac Type Severity Reaction Status Date / Time adhesive Allergy Unknown Hives Verified 12/26/20 10:11 Corticosteroids Allergy Unknown Hives Verified 12/26/20 10:11 (Glucocorticoids) levofloxacin Allergy Unknown Hives Verified 12/26/20 10:11 methylprednisolone Allergy Unknown Hives Verified 12/26/20 10:11 metronidazole Allergy Unknown Hives Verified 12/26/20 10:11 Home Medications Medication Instructions Recorded Confirmed Type Myrbetriq 50 mg PO DAILY 11/24/20 12/25/20 History Restasis 1 drp EACH EYE DAILY 11/24/20 12/25/20 History Zyrtec 10 mg PO DAILY 11/24/20 12/25/20 History acetaminophen 500 mg PO Q6H PRN 11/24/20 12/25/20 History acidophilus-pectin, citrus 1 cap PO DAILY 11/24/20 12/25/20 History [Acidophilus Probiotic] alendronate-vitamin D3 1 tablet PO WEEKLY 11/24/20 12/25/20 History aspirin 81 mg PO DAILY 11/24/20 12/25/20 History baclofen 20 mg PO BID 11/24/20 12/25/20 History benzonatate 200 mg PO BID PRN 11/24/20 12/25/20 History calcium carbonate-vitamin D3 1 tablet PO DAILY 11/24/20 12/25/20 History esomeprazole magnesium [Nexium] 40 mg PO DAILY 11/24/20 12/25/20 History fluticasone propionate 1 spray INTRANASAL DAILY 11/24/20 12/25/20 History furosemide [Lasix] 20 - 40 mg PO DAILY 11/24/20 12/25/20 History hydralazine 25 mg PO DAILY PRN 11/24/20 12/25/20 History hydrocodone-acetaminophen 0.5 tablet PO Q8H PRN 11/24/20 12/25/20 History isosorbide mononitrate 30 mg PO DAILY 11/24/20 12/25/20 History levothyroxine 50 mcg PO DAILY 11/24/20 12/25/20 History losartan 50 mg PO DAILY 11/24/20 12/25/20 History magnesium 400 mg PO DAILY 11/24/20 12/25/20 History metoprolol succinate 50 mg PO DAILY 11/24/20 12/25/20 History montelukast [Singulair] 10 mg PO DAILY 11/24/20 12/25/20 History xgkzwziwwnkp-Vx-bahj-minerals 1 tablet PO DAILY 11/24/20 12/25/20 History nitroglycerin 0.4 mg SUBLINGUAL Q5-15M PRN 11/24/20 12/25/20 History rosuvastatin [Crestor] 20 mg PO DAILY 11/24/20 12/25/20 History solifenacin [Vesicare] 5 mg PO DAILY 11/24/20 12/25/20 History vitamin B complex [B 1 tablet PO DAILY 11/24/20 12/25/20 History Complex-Vitamin B12] Laboratory Tests 12/25/20 12/25/20 12/25/20 12:10 12:39 16:08 WBC RBC Hgb 10.0 g/dL L g/dL (12.0-15.0) Hct 32.1 % L % (37.0-47.0) MCV MCH MCHC RDW Plt Count MPV Immature Gran % (Auto) Neut % (Auto) Lymph % (Auto) [place] % (Auto) Eos % (Auto) Baso % (Auto) Lymph # (Auto) [place] # (Auto) Eos # (Auto) Baso # (Auto) Abs Immat Gran (auto) Absolute Neuts (auto) Absolute Nucleated RBC Nucleated RBC % PT INR APTT Sodium Potassium Chloride Carbon Dioxide Anion Gap BUN Creatinine Estim Creat Clear Calc Estimated GFR Glucose POC Capillary Glucose 131 mg/dl H mg/dl 123 mg/dl H mg/dl (65-105) (65-105) Hemoglobin A1c Calcium Magnesium 12/25/20 12/25/20 12/26/20 18:19 20:16 00:41 WBC RBC
--- NOTE | 2020-12-26 12:30 | PM.PROC ---
Procedure Note - Detailed Date of procedure: 12/26/20 Pre-op diagnosis: Lower gi bleed internal hemorrhoids Post-op diagnosis: same Procedure performed: IRC Description of procedure: Patient signed consent. No anal fissure, no bleeding, noted skin tags. I introduced anoscope, found grade II non-bleeding internal hemorrhoids, then IRC probe was inserted and used for 1.5 seconds each time x6, patient tolerated procedure and will go to recovery area. Recommendations: use stool softners and avoid straining Surgeon: Giovany Davis MD
[2020-12-26] MEDS: FUROSEMIDE 20 MG TABLET PO (13:46)
[2020-12-26] MEDS: MIRABEGRON 50 MG ER TABLET PO (13:47)
[2020-12-26] MEDS: BACLOFEN 10 MG TABLET 20 MG PO ×2 (13:47→21:13)
[2020-12-26] MEDS: PANTOPRAZOLE 40 MG TABLET PO ×2 (13:48→21:14)
[2020-12-26] MEDS: ISOSORBIDE MONONITRATE 30 MG TAB.ER.24H PO (13:48)
[2020-12-26] MEDS: LOSARTAN POTASSIUM 50 MG TABLET PO (13:50)
[2020-12-26] MEDS: MAGNESIUM OXIDE 400 MG TABLET PO (13:50)
[2020-12-26] MEDS: LORATADINE 10 MG TABLET PO (13:50)
[2020-12-26] MEDS: SOLIFENACIN 5 MG TABLET PO (13:51)
[2020-12-26] MEDS: MONTELUKAST SODIUM 10 MG TABLET PO (13:52)
[2020-12-26 14:02] LABS: Glucose Point of Care 129 (65-105)
--- NOTE | 2020-12-26 14:03 | PM.IMPN ---
Progress Note: A&P Assessment and Plan (1) Lower GI bleed: Code(s): K92.2 - Gastrointestinal hemorrhage, unspecified Status: Acute Assessment and Plan: 2/ to internal hemoorrhoids and sigmoiditis noted on sigmoidoscopy today as well as gastritis -IRC was completed on the hemorrhoids which hopefully will help bleeding -Pt was started on augmentin by GI -She takes Nexium 40mg daily and we will do 40mg BID of protonix for 6 weeks -H&H stable 9.4 and was 10.5 on admission. -Hgb last month was 12.3 so there has been some blood loss -will draw anemia labs (2) Sigmoiditis: Code(s): K52.9 - Noninfective gastroenteritis and colitis, unspecified Status: Acute Assessment and Plan: Start augmentin -no abdominal pain on exam today (3) Internal bleeding hemorrhoids: Code(s): K64.8 - Other hemorrhoids Status: Acute Assessment and Plan: s/p IRC 12/26/20 (4) Anemia: Code(s): D64.9 - Anemia, unspecified Status: Acute Assessment and Plan: As above (5) Constipation: Qualifiers: Constipation type: unspecified constipation type Qualified Code(s): K59.00 - Constipation, unspecified Code(s): K59.00 - Constipation, unspecified Status: Acute Assessment and Plan: Likely etiology behind abdominal pain. -Miralax and docusate Q12hr for now -GI following and appreciate recommendations (6) Hypertension: Code(s): I10 - Essential (primary) hypertension Status: Acute Assessment and Plan: last bp 132/68 -continue imdur, lasix, losartan, and metoprolol (7) CAD (coronary artery disease): Code(s): I25.10 - Atherosclerotic heart disease of [place] coronary artery without angina pectoris Status: Acute Assessment and Plan: No acute issues at this moment; denies chest pain today. Has had occasional intermittent chest pain in the past couple weeks that was relieved by her SL nitro Continue home meds (8) History of atrial fibrillation: Code(s): Z86.79 - Personal history of other diseases of the circulatory system Status: Acute Assessment and Plan: in NSR for me today. No a/c given history of GI bleeds Continue home metoprolol Monitor (9) Diabetes mellitus: Code(s): E11.9 - Type 2 diabetes mellitus without complications Status: Acute Assessment and Plan: Diet controlled -A1c Appropriate (10) Hypothyroidism: Code(s): E03.9 - Hypothyroidism, unspecified Status: Inactive Assessment and Plan: TSH WNL -Continue home levothyroxine Time Spent With Patient Time with patient: 25 - 35 minutes Subjective Date/time seen: 12/26/20 14:03 Interval history: Pt is a 85 y/o here for GI bleed. Patient was seen today with daughter at bedside. Patient states that she is doing okay. She denies lightheadedness or dizziness but does feel weak. She states that she usually uses a wheelchair to get around and transfers independently. She is at assisted living and the family thinks they want to keep her there but will see how she does with physical therapy. The patient states that she occasionally has dark stool and some bright red blood per rectum. This is been going on for a couple weeks. She also mentions that she has occasional wheezy and short of breath but overall that has not changed for years . She is fairly deconditioned and pretty much just uses a wheelchair although she would like to try and walk again some day. Review of Systems Review of Systems: All systems reviewed & are unremarkable except as noted in HPI and below Exam Narrative: Exam Narrative: General: Well developed well nourished patient in NAD HEENT: normocephalic Neck: supple Neuro: Alert and oriented CV:RRR no murmurs Resp: Slight expiratory wheeze, no crackles Abd: Soft, non distended. No pain to palpation. Positive bowel
[2020-12-26] MEDS: ACETAMINOPHEN 325 MG TABLET 650 MG PO (15:36)
[2020-12-26 17:19] LABS: Glucose Point of Care 187 (65-105)
[2020-12-26] MEDS: DOCUSATE SODIUM 100 MG CAPSULE PO (21:13)
[2020-12-26] MEDS: AMOXICILLIN/CLAVULANATE K 875-125 MG TAB 1 TABLET PO (21:13)
[2020-12-26] MEDS: polyethylene glycoL 3350 17 GM POWD.PACK PO (21:15)
[2020-12-26] MEDS: HYDROcodone/acetaminophen (*CRX) 5-325 MG TABLET 1 TAB PO (21:15)
[2020-12-26] MEDS: HYDROCORTISONE ACETATE 25 MG SUPPOSITORY RECTAL (21:24)
[2020-12-26 21:55] LABS: Glucose Point of Care 105 (65-105)
[2020-12-27] VITALS (8 sets, daily range): BP systolic 93–120; BP diastolic 50–62; PULSE 81–104; RESP 16–18; TEMP 36.4–38; O2SAT 91–94
[2020-12-27] MEDS: ACETAMINOPHEN 325 MG TABLET 650 MG PO (02:07)
[2020-12-27 05:32] LABS: Hematocrit 26.3 % (37.0-47.0); Hemoglobin 8.1 g/dL (12.0-15.0)
[2020-12-27 05:54] LABS: Anion Gap 3 mmol/L (8-16); Blood Urea Nitrogen 16 mg/dL (7-17); Calcium 7.6 mg/dL (8.4-10.2); Carbon Dioxide 29 mmol/L (22-30); Chloride 107 mmol/L (98-107); Estimated CRCL calculation 31 ml/min; Estimated Glomerular Filt Rate 43; Glucose 133 mg/dL (65-105); Potassium 3.9 mmol/L (3.4-5.0); Sodium 139 mmol/L (137-145)
[2020-12-27] MEDS: LEVOTHYROXINE SODIUM 50 MCG TABLET PO (06:10)
[2020-12-27 07:36] LABS: Glucose Point of Care 125 (65-105)
[2020-12-27 09:02] LABS: Add Urine Microscopic? YES; Appearance Urine Clear (Clear); Bilirubin Urine Negative (Negative); Blood Urine Negative (Negative); Color Urine Yellow (Yellow); Glucose Urine UA Negative (Negative); Ketones Urine Negative (Negative); Leukocyte Esterase Ur Trace LEU/UL (Negative); Mucus Urine Rare /lpf; Nitrate Urine Negative (Negative); Protein Urine Negative (Negative); RBC Urine 0-2 /hpf (0-2); Urobilinogen Urine Negative mg/dL (<2.0)
[2020-12-27] MEDS: AMOXICILLIN/CLAVULANATE K 875-125 MG TAB 1 TABLET PO ×2 (09:10→21:00)
[2020-12-27] MEDS: ISOSORBIDE MONONITRATE 30 MG TAB.ER.24H PO (09:10)
[2020-12-27] MEDS: ACIDOPHILUS/BULGARICUS CHEWABLE TABLET 1 TABLET PO (09:10)
[2020-12-27] MEDS: FLUTICASONE PROPIONATE 0.05% NA SPR 16 GM BTL (*BKC) 1 SPRAY NASAL (09:10)
[2020-12-27] MEDS: SOLIFENACIN 5 MG TABLET PO (09:10)
[2020-12-27] MEDS: BENZONATATE 100 MG CAPSULE 200 MG PO (09:11)
[2020-12-27] MEDS: BACLOFEN 10 MG TABLET 20 MG PO ×2 (09:11→21:00)
[2020-12-27] MEDS: MAGNESIUM OXIDE 400 MG TABLET PO (09:11)
[2020-12-27] MEDS: ROSUVASTATIN 10 MG TABLET 20 MG PO (09:11)
[2020-12-27] MEDS: cycloSPORINE 0.4 ML OPHTH SOLUTION 1 DROP EACH EYE (09:12)
[2020-12-27] MEDS: FUROSEMIDE 20 MG TABLET PO (09:12)
[2020-12-27] MEDS: METOPROLOL SUCCINATE EXT REL 50 MG TABCR PO (09:12)
[2020-12-27] MEDS: MONTELUKAST SODIUM 10 MG TABLET PO (09:12)
[2020-12-27] MEDS: LOSARTAN POTASSIUM 50 MG TABLET PO (09:13)
[2020-12-27] MEDS: MIRABEGRON 50 MG ER TABLET PO (09:13)
[2020-12-27] MEDS: DOCUSATE SODIUM 100 MG CAPSULE PO ×2 (09:13→21:00)
[2020-12-27] MEDS: THERAPEUTIC MULTIVITAMINS/MINERALS TAB (*BKC) 1 TABLET PO (09:13)
[2020-12-27] MEDS: LORATADINE 10 MG TABLET PO (09:13)
[2020-12-27] MEDS: PANTOPRAZOLE 40 MG TABLET PO ×2 (09:13→21:00)
[2020-12-27] MEDS: polyethylene glycoL 3350 17 GM POWD.PACK PO ×2 (09:14→21:01)
[2020-12-27] MEDS: HYDROCORTISONE ACETATE 25 MG SUPPOSITORY RECTAL ×2 (09:14→21:00)
[2020-12-27] MEDS: HYDROcodone/acetaminophen (*CRX) 5-325 MG TABLET 1 TAB PO (09:24)
--- NOTE | 2020-12-27 09:36 | WPDANESPN ---
Anes - Prog Note Post-Op Date/Time: 12/27/20 09:36 Cardiovascular status: normal Respiratory status: normal Airway patency: baseline Mental status: baseline Post-Op hydration status: normal Vital Signs: Last Vital Signs Temp 36.8 C 12/27/20 05:51 Pulse 100 12/27/20 09:12 Resp 16 12/27/20 05:51 BP 102/55 L 12/27/20 05:51 Pulse Ox 91 12/27/20 05:51 Pain Score (VAS): 0 I/O: Intake & Output 12/26/20 12/27/20 12/27/20 23:59 07:59 15:59 Intake Total 240 400 360 Output Total 300 200 Balance -60 200 360 Laboratory Tests 12/27/20 05:12 12/27/20 05:12 12/26/20 12/26/20 12/26/20 13:57 17:16 21:33 Hgb Hct Sodium Potassium Chloride Carbon Dioxide Anion Gap BUN Creatinine Estim Creat Clear Calc Estimated GFR Glucose POC Capillary Glucose 129 H 187 H 105 Calcium Urine Color Urine Appearance Urine pH Ur Specific [place] Urine Protein Urine Glucose (UA) Urine Ketones Ur Blood (Man) Urine Nitrate Urine Bilirubin Urine Urobilinogen Leukocyte Esterase Rfl Urine RBC Urine WBC Hyaline Casts Urine Mucus 12/27/20 12/27/20 12/27/20 05:12 05:12 07:33 Hgb 8.1 L Hct 26.3 L Sodium 139 Potassium 3.9 Chloride 107 Carbon Dioxide 29 Anion Gap 3 L BUN 16 Creatinine 1.20 H Estim Creat Clear Calc 31 Estimated GFR 43 L Glucose 133 H POC Capillary Glucose 125 H Calcium 7.6 L Urine Color Urine Appearance Urine pH Ur Specific [place] Urine Protein Urine Glucose (UA) Urine Ketones Ur Blood (Man) Urine Nitrate Urine Bilirubin Urine Urobilinogen Leukocyte Esterase Rfl Urine RBC Urine WBC Hyaline Casts Urine Mucus 12/27/20 08:38 Hgb Hct Sodium Potassium Chloride Carbon Dioxide Anion Gap BUN Creatinine Estim Creat Clear Calc Estimated GFR Glucose POC Capillary Glucose Calcium Urine Color Yellow Urine Appearance Clear Urine pH 6.0 Ur Specific [place] 1.020 Urine Protein Negative Urine Glucose (UA) Negative Urine Ketones Negative Ur Blood (Man) Negative Urine Nitrate Negative Urine Bilirubin Negative Urine Urobilinogen Negative Leukocyte Esterase Rfl Trace H Urine RBC 0-2 Urine WBC 4-6 H Hyaline Casts 5-9 H Urine Mucus Rare Post-procedural complaints: none Patient Feedback: Patient satisfied with anesthetic care.
[2020-12-27 11:26] LABS: Glucose Point of Care 236 (65-105)
[2020-12-27] MEDS: INSULIN ASPART (*BKC) 100 UNITS/ML SUB-Q (11:34)
--- NOTE | 2020-12-27 14:53 | PM.IMPN ---
Progress Note: A&P Assessment and Plan (1) Sigmoiditis: Code(s): K52.9 - Noninfective gastroenteritis and colitis, unspecified Status: Acute Assessment and Plan: Noted on exam yesterday and Augmentin was started -seemed non complicated as the patient did not have any abdominal pain but then she started having fevers last night -her UA and chest x-ray do not show any source of infection, suspect sigmoiditis as the cause (COVID less likely) -continue augmentin -obtain blood cultures, hopefully discharge tomorrow as long as she has been fever free for 24 hours (2) Lower GI bleed: Code(s): K92.2 - Gastrointestinal hemorrhage, unspecified Status: Acute Assessment and Plan: 11/01 to internal hemoorrhoids and sigmoiditis noted on sigmoidoscopy as well as gastritis -IRC was completed on the hemorrhoids which hopefully will help bleeding -Pt was started on augmentin by GI -She takes Nexium 40mg daily and we will do 40mg BID of protonix for 6 weeks -H&H stable 8.1 with no sings of bleeding (10.5 on admission.) -Hgb last month was 12.3 so there has been some blood loss -will draw anemia labs 12/28/20 (3) Internal bleeding hemorrhoids: Code(s): K64.8 - Other hemorrhoids Status: Acute Assessment and Plan: s/p IRC 12/26/20 (4) Anemia: Code(s): D64.9 - Anemia, unspecified Status: Acute Assessment and Plan: As above (5) Constipation: Qualifiers: Constipation type: unspecified constipation type Qualified Code(s): K59.00 - Constipation, unspecified Code(s): K59.00 - Constipation, unspecified Status: Acute Assessment and Plan: Likely etiology behind abdominal pain. -Miralax and docusate -GI following and appreciate recommendations (6) Hypertension: Code(s): I10 - Essential (primary) hypertension Status: Acute Assessment and Plan: last bp 98/52 -continue imdur, lasix, losartan, and metoprolol but with parameters (7) CAD (coronary artery disease): Code(s): I25.10 - Atherosclerotic heart disease of [place] coronary artery without angina pectoris Status: Acute Assessment and Plan: No acute issues at this moment; denies chest pain today. Has had occasional intermittent chest pain in the past couple weeks that was relieved by her SL nitro Continue home meds (8) History of atrial fibrillation: Code(s): Z86.79 - Personal history of other diseases of the circulatory system Status: Acute Assessment and Plan: in NSR for me today. No a/c given history of GI bleeds Continue home metoprolol Monitor (9) Diabetes mellitus: Code(s): E11.9 - Type 2 diabetes mellitus without complications Status: Acute Assessment and Plan: Diet controlled -A1c Appropriate (10) Hypothyroidism: Code(s): E03.9 - Hypothyroidism, unspecified Status: Inactive Assessment and Plan: TSH WNL -Continue home levothyroxine Subjective Date/time seen: 12/27/20 14:53 Interval history: Pt is a 85 y/o here for GI bleed and sigmoiditis. Patient was seen today and is feeling a bit stronger. She is no longer having multiple stools or blood in her stools. Although she is weak at baseline, she feels better today compared to yesterday. She has no abdominal pain but feels bloated in it feels like she has pressure in the area. She also mentions that she had a fever overnight. She denied nausea, vomiting, chest pain, shortness of breath, diarrhea, dysuria, cough or positive patient. Exam Narrative: Exam Narrative: General: Well developed well nourished patient in NAD HEENT: normocephalic Neck: supple Neuro: Alert and oriented CV:RRR no murmurs Resp: Clear to auscultation today, no wheezing or crackles Abd: Soft, non distended. No pain to palpation. Positive bowel sounds Extremities: No swelling, erythema, or pain to pal
[2020-12-27 16:20] LABS: Glucose Point of Care 126 (65-105)
--- NOTE | 2020-12-27 17:54 | WPDGIPROGNO ---
Progress Note: A&P Assessment and Plan (1) Lower GI bleed: Code(s): K92.2 - Gastrointestinal hemorrhage, unspecified Status: Acute Assessment and Plan: combination from ischemic colitis found yesterday (bx reviewed), also had hemorrhoids that I treated with IRC (2) Ischemic colitis: Code(s): K55.9 - Vascular disorder of intestine, unspecified Status: Acute Assessment and Plan: on oral antibiotic get stool culture but she is doing fine probably home tomorrow if she is tolerating diet and no fever (3) Internal bleeding hemorrhoids: Code(s): K64.8 - Other hemorrhoids Status: Acute Assessment and Plan: s/p IRC treatment (4) Gastritis: Code(s): K29.70 - Gastritis, unspecified, without bleeding Status: Acute Assessment and Plan: found yesterday, no bleeding on ppi (5) Esophageal ring: Code(s): K22.2 - Esophageal obstruction Status: Acute Assessment and Plan: dilated yesterday with egd (6) Dysphagia: Code(s): R13.10 - Dysphagia, unspecified Status: Acute Assessment and Plan: better after dilation Subjective Date/time seen: 12/27/20 17:54 Interval history: had low grade fever but feeling better now. Also eating better after dilation of esophagus yesterday. Review of Systems Review of Systems: All systems reviewed & are unremarkable except as noted in HPI and below Exam Const: General: comfortable and no acute distress HENMT: General nose exam: Normal nares present Eyes: General: appearance normal, both eyes and all related structures Neck: Neck: supple Resp: Auscultation: clear to auscultation bilaterally Cardio: Rate: regular rate GI: Inspection: non-distended GI Palp: Yes Soft to palpation Auscultation: normal bowel sounds Skin: General skin exam: normal color Neuro: Speech: normal speech Motor exam (neuro): Normal motor muscle tone present throughout Extrem: General: no edema Other: left hand contraction (from remote cva) Psych: Affect: normal affect Objective Data Vital Signs Vital Signs: Vital Signs - 24 hr 12/26/20 20:35 12/27/20 00:00 12/27/20 02:00 Temperature 98.9 F 99.9 F H 100.4 F H Pulse Rate 94 104 H Respiratory Rate 18 16 Blood Pressure 121/62 120/51 L Pulse Oximetry 95 94 12/27/20 02:07 12/27/20 05:51 12/27/20 09:12 Temperature 100.4 F H 98.2 F Pulse Rate 100 100 Respiratory Rate 16 Blood Pressure 102/55 L Pulse Oximetry 91 12/27/20 10:00 12/27/20 14:00 Temperature 98.6 F 98.1 F Pulse Rate 81 104 H Respiratory Rate 16 18 Blood Pressure 93/62 L 98/52 L Pulse Oximetry 93 94 Intake/Output Intake/Output: Intake & Output 12/24/20 12/25/20 12/26/20 12/27/20 23:59 23:59 23:59 23:59 Intake Total 3410 1080 1000 Output Total 550 300 800 Balance 2860 780 200 Meds/Results Medications: Active Medications Generic Name Dose Route Start Last Admin Trade Name Freq PRN Reason Stop Dose Admin Acetaminophen 650 mg 12/25/20 00:55 12/27/20 02:07 Acetaminophen 325 Mg Tablet PO 650 mg Q4H PRN Administration Mild Pain (1-3) or Fever Hydrocodone Bitart/Acetaminophen 1 tab 12/25/20 09:43 12/27/20 09:24 Hydrocodone/Acetaminophen (*Crx) 5-325 Mg Tablet PO 1 tab Q8H PRN Administration Pain Rated 4-6 Albuterol 2 puff 12/26/20 14:05 Albuterol Sulfate (*Sp) Aerosol 1 Puff INHALATION Q6HRT PRN SOB or wheezing Amoxicillin/Clavulanate Potassium 1 tablet 12/26/20 21:00 12/27/20 09:10 Amoxicillin/Clavulanate K 875-125 Mg Tab PO 12/31/20 21:01 1 tablet Q12HR NATALIA Administration Baclofen 20 mg 12/25/20 09:00 12/27/20 09:11 Baclofen 10 Mg Tablet PO 20 mg Q12HR NATALIA Administration Benzonatate 200 mg 12/25/20 06:14 12/27/20 09:11 Benzonatate 100 Mg Capsule PO 200 mg BID PRN Administration Cough Calcium Carbonate 500 mg 12/25/20 09:00 12/27/20 09:28 Calci
[2020-12-27 21:40] LABS: Glucose Point of Care 148 (65-105)
[2020-12-28] VITALS: BP 104/59; PULSE 95; RESP 16; TEMP 36.5; O2SAT 97
[2020-12-28] MEDS: HYDROcodone/acetaminophen (*CRX) 5-325 MG TABLET 1 TAB PO (02:25)
[2020-12-28 04:00] VITALS: BP 100/58; PULSE 88; RESP 16; TEMP 36.6; O2SAT 91
[2020-12-28 05:55] LABS: Hematocrit 25.3 % (37.0-47.0); Hemoglobin 7.8 g/dL (12.0-15.0); Mean Corpuscular HGB Conc 30.8 g/dl (32-36); Mean Corpuscular Hemoglobin 27.9 pg (26-34); Mean Corpuscular Volume 90.4 fl (80-100); Platelet Count Result 197 k/mm3 (150-375); Red Cell Distribution Width 16.1 % (11.5-14.5); White Blood Count 8.9 K/mm3 (4.5-10.0)
[2020-12-28 05:59] LABS: Potassium 3.9 mmol/L (3.4-5.0)
[2020-12-28 06:05] LABS: Anion Gap 2 mmol/L (8-16); Blood Urea Nitrogen 15 mg/dL (7-17); Calcium 7.8 mg/dL (8.4-10.2); Carbon Dioxide 29 mmol/L (22-30); Chloride 106 mmol/L (98-107); Estimated CRCL calculation 34 ml/min; Estimated Glomerular Filt Rate 47; Glucose 135 mg/dL (65-105); Sodium 137 mmol/L (137-145)
[2020-12-28 06:06] LABS: Transferrin 182 mg/dL (206-381)
[2020-12-28] MEDS: ACETAMINOPHEN 325 MG TABLET 650 MG PO (06:15)
[2020-12-28] MEDS: LEVOTHYROXINE SODIUM 50 MCG TABLET PO (06:16)
[2020-12-28 06:22] LABS: Iron 17 ug/dL (37-170)
[2020-12-28 06:31] LABS: Percent Iron Saturation 7 % (20-50)
[2020-12-28 07:09] LABS: Folic Acid > 20.0 ng/mL (2.76->20)
[2020-12-28 07:58] VITALS: PULSE 72
[2020-12-28 08:00] VITALS: BP 96/48; PULSE 72; RESP 16; TEMP 36.9; O2SAT 96
[2020-12-28 08:03] LABS: Glucose Point of Care 117 (65-105)
[2020-12-28] MEDS: FLUTICASONE PROPIONATE 0.05% NA SPR 16 GM BTL (*BKC) 1 SPRAY NASAL (08:38)
[2020-12-28] MEDS: THERAPEUTIC MULTIVITAMINS/MINERALS TAB (*BKC) 1 TABLET PO (08:39)
[2020-12-28] MEDS: SOLIFENACIN 5 MG TABLET PO (08:40)
[2020-12-28] MEDS: ROSUVASTATIN 10 MG TABLET 20 MG PO (08:40)
[2020-12-28] MEDS: ACIDOPHILUS/BULGARICUS CHEWABLE TABLET 1 TABLET PO (08:40)
[2020-12-28] MEDS: MONTELUKAST SODIUM 10 MG TABLET PO (08:40)
[2020-12-28] MEDS: MIRABEGRON 50 MG ER TABLET PO (08:40)
[2020-12-28] MEDS: BACLOFEN 10 MG TABLET 20 MG PO (08:41)
[2020-12-28] MEDS: LORATADINE 10 MG TABLET PO (08:41)
[2020-12-28] MEDS: cycloSPORINE 0.4 ML OPHTH SOLUTION 1 DROP EACH EYE (08:41)
[2020-12-28] MEDS: MAGNESIUM OXIDE 400 MG TABLET PO (08:42)
[2020-12-28] MEDS: HYDROCORTISONE ACETATE 25 MG SUPPOSITORY RECTAL (08:42)
[2020-12-28] MEDS: DOCUSATE SODIUM 100 MG CAPSULE PO (08:42)
[2020-12-28] MEDS: polyethylene glycoL 3350 17 GM POWD.PACK PO (08:42)
[2020-12-28] MEDS: AMOXICILLIN/CLAVULANATE K 875-125 MG TAB 1 TABLET PO (08:42)
[2020-12-28] MEDS: PANTOPRAZOLE 40 MG TABLET PO (08:42)
[2020-12-28 10:00] VITALS: BP 116/48; PULSE 73; RESP 16; TEMP 36.4; O2SAT 97
[2020-12-28 12:14] LABS: Hematocrit 28.2 % (37.0-47.0); Hemoglobin 8.6 g/dL (12.0-15.0)
[2020-12-28 12:30] LABS: Glucose Point of Care 176 (65-105)
[2020-12-28 14:00] VITALS: BP 118/56; PULSE 96; RESP 16; TEMP 36.6; O2SAT 96
--- NOTE | 2020-12-28 14:03 | PM.DS ---
DS: Admitting Diagnosis Admitting Diagnosis Admitting Diagnosis: GI bleeding DS: Discharge Diagnosis Discharge Diagnosis (1) Sigmoiditis: Code(s): K52.9 - Noninfective gastroenteritis and colitis, unspecified Status: Acute Assessment and Plan: -Augmentin will be continued outpt -Pt feeling better day of discharge -Pt did have fevers during hospitalization -blood cultures NGTD and will be monitored until finalized (2) Lower GI bleed: Code(s): K92.2 - Gastrointestinal hemorrhage, unspecified Status: Acute Assessment and Plan: / to internal hemoorrhoids and sigmoiditis noted on sigmoidoscopy as well as gastritis -IRC was completed on the hemorrhoids which hopefully will help bleeding -Pt was started on augmentin by GI -She takes Nexium 40mg daily and we will do 40mg BID of protonix for 6 weeks -H&H stable 8.6 with no sings of bleeding day of discharge (10.5 on admission.) -Hgb last month was 12.3 so there has been some blood loss (3) Internal bleeding hemorrhoids: Code(s): K64.8 - Other hemorrhoids Status: Acute Assessment and Plan: s/p IRC 12/26/20 (4) Anemia: Code(s): D64.9 - Anemia, unspecified Status: Acute Assessment and Plan: As above (5) Constipation: Qualifiers: Constipation type: unspecified constipation type Qualified Code(s): K59.00 - Constipation, unspecified Code(s): K59.00 - Constipation, unspecified Status: Acute Assessment and Plan: Likely etiology behind abdominal pain. -Continue Miralax as needed (6) Hypertension: Code(s): I10 - Essential (primary) hypertension Status: Acute Assessment and Plan: last bp 118/56 -continue imdur, lasix, losartan, and metoprolol (7) CAD (coronary artery disease): Code(s): I25.10 - Atherosclerotic heart disease of [place] coronary artery without angina pectoris Status: Acute Assessment and Plan: No acute issues at this moment; denies chest pain today. Has had occasional intermittent chest pain in the past couple weeks that was relieved by her SL nitro Continue home meds (8) History of atrial fibrillation: Code(s): Z86.79 - Personal history of other diseases of the circulatory system Status: Acute Assessment and Plan: in NSR for me today. No a/c given history of GI bleeds Continue home metoprolol Monitor (9) Diabetes mellitus: Code(s): E11.9 - Type 2 diabetes mellitus without complications Status: Acute Assessment and Plan: Diet controlled -A1c Appropriate (10) Hypothyroidism: Code(s): E03.9 - Hypothyroidism, unspecified Status: Inactive Assessment and Plan: TSH WNL -Continue home levothyroxine DS: Summary Hospital Course Hospital Course: Patient is a 85-year-old female with a past medical history of CHF, atrial fibrillation, and recurrent GI bleeding presented emergency room for difficulty passing stools and dark red and maroon stools. Vitals on arrival temperature 97.5? F, pulse 75, respiratory rate 20, blood pressure 139/66, pulse ox room air. Hemoglobin 10.5 which was down a bit from last month which was 12.3. Chest x-ray showed left basilar atelectasis and cardiomegaly. Patient was admitted to the hospitalist service and was observed. To 7.8 at the lowest but was 8.6 at discharge. She did not require any blood transfusions., diverticulosis without perforation abscess or bleeding, sigmoiditis, anal skin tag, and internal hemorrhoids. These were treated with IRC. EGD showed hiatal hernia, Schatzki's ring, and gastritis. Patient had no further bleeding was doing well. Hemoglobin was stable. She was started on antibiotics for his sigmoiditis and her blood pressure medications were adjusted due to low blood pressures and possible history of ischemic colitis. Overall, the patient was doing we
--- NOTE | 2020-12-28 14:43 | PC.NURSE ---
On 12/28/20, the student, [Angelina Frye ], provided care and completed [facility] documentation on this patient. I have reviewed the student's documentation and agree with the findings.
--- NOTE | 2020-12-28 16:52 | WPDGIPROGNO ---
Progress Note: A&P Assessment and Plan (1) Lower GI bleed: Code(s): K92.2 - Gastrointestinal hemorrhage, unspecified Status: Acute Assessment and Plan: combination from ischemic colitis, also had hemorrhoids that I treated with IRC (2) Ischemic colitis: Code(s): K55.9 - Vascular disorder of intestine, unspecified Status: Acute Assessment and Plan: on oral antibiotic (augmentin total 5 days) and she can go home (3) Internal bleeding hemorrhoids: Code(s): K64.8 - Other hemorrhoids Status: Acute Assessment and Plan: s/p IRC treatment (4) Gastritis: Code(s): K29.70 - Gastritis, unspecified, without bleeding Status: Acute Assessment and Plan: no bleeding on ppi now (5) Esophageal ring: Code(s): K22.2 - Esophageal obstruction Status: Acute Assessment and Plan: dilated with egd (6) Dysphagia: Code(s): R13.10 - Dysphagia, unspecified Status: Acute Assessment and Plan: better after dilation Subjective Date/time seen: 12/28/20 13:00 Interval history: she is feeling like going home, tolerating diet Review of Systems Review of Systems: All systems reviewed & are unremarkable except as noted in HPI and below Exam Const: General: comfortable and no acute distress HENMT: General nose exam: Normal nares present Eyes: General: appearance normal, both eyes and all related structures Neck: Neck: supple Resp: Auscultation: clear to auscultation bilaterally Cardio: Rate: regular rate GI: Inspection: non-distended GI Palp: Yes Soft to palpation Auscultation: normal bowel sounds Skin: General skin exam: normal color Neuro: Speech: normal speech Motor exam (neuro): Normal motor muscle tone present throughout Extrem: General: no edema Other: left hand contraction (from remote cva) Psych: Affect: normal affect Objective Data Vital Signs Vital Signs: Vital Signs - 24 hr 12/27/20 20:56 12/28/20 00:00 12/28/20 04:00 Temperature 97.6 F 97.7 F 97.8 F Pulse Rate 95 95 88 Respiratory Rate 16 16 16 Blood Pressure 106/50 L 104/59 L 100/58 L Pulse Oximetry 94 97 91 12/28/20 07:58 12/28/20 08:00 12/28/20 10:00 Temperature 98.4 F 97.6 F Pulse Rate 72 72 73 Respiratory Rate 16 16 Blood Pressure 96/48 L 116/48 L Pulse Oximetry 96 97 12/28/20 14:00 Temperature 97.9 F Pulse Rate 96 Respiratory Rate 16 Blood Pressure 118/56 L Pulse Oximetry 96 Intake/Output Intake/Output: Intake & Output 12/25/20 12/26/20 12/27/20 12/28/20 23:59 23:59 23:59 23:59 Intake Total 3410 1080 1240 1000 Output Total 550 300 800 450 Balance 2860 780 440 550 Meds/Results Radiology Results: ITS Impressions Chest X-Ray 12/27/20 08:50 Impression: 1: Left basilar atelectasis. 2: Cardiomegaly. Labs Labs: Laboratory Results - last 24 hr 12/27/20 12/28/20 12/28/20 21:14 05:37 05:37 WBC 8.9 RBC 2.80 L Hgb 7.8 L Hct 25.3 L MCV 90.4 MCH 27.9 MCHC 30.8 L RDW 16.1 H Plt Count 197 MPV 10.0 Sodium 137 Potassium 3.9 Chloride 106 Carbon Dioxide 29 Anion Gap 2 L BUN 15 Creatinine 1.10 H Estim Creat Clear Calc 34 Estimated GFR 47 L Glucose 135 H POC Capillary Glucose 148 H Calcium 7.8 L Iron TIBC % Saturation Transferrin 182 L Ferritin Vitamin B12 915.0 Folate > 20.0 H 12/28/20 12/28/20 12/28/20 05:37 07:52 11:10 WBC RBC Hgb Hct MCV MCH MCHC RDW Plt Count MPV Sodium Potassium Chloride Carbon Dioxide Anion Gap BUN Creatinine Estim Creat Clear Calc Estimated GFR Glucose POC Capillary Glucose 117 H 176 H Calcium Iron 17 L TIBC 257 L % Saturation 7 L Transferrin Ferritin 15.70 Vitamin B12 Folate 12/28/20 11:58 WBC RBC Hgb 8.6 L Hct 28.2 L MCV MCH MCHC RDW
--- NOTE | 2021-01-02 12:16 | PC.NURSE ---
Blood cx are negative. C diff is positive. PIPPA Nye aware.
== END 2020-12-28 15:40 | DRG 347 ==
PROVIDERS: Internal Medicine Gastroenterology; Physician Assistant; Admitting Provider Internal Medicine; PCP Internal Medicine; Visit Provider Internal Medicine
PROC: 0DJ08ZZ Inspection of Upper Intestinal Tract, Via Natural or Artificial Opening Endoscopic (ICD-10-PCS; CPT 43235; principal; 2020-12-26 15:15)
PROC: 06BY4ZC Excision of Hemorrhoidal Plexus, Percutaneous Endoscopic Approach (ICD-10-PCS; CPT 46930; 2020-12-26 15:15)
DX: K64.8 Other hemorrhoids (principal); K29.71 Gastritis, unspecified, with bleeding; K55.9 Vascular disorder of intestine, unspecified; K22.2 Esophageal obstruction; K44.9 Diaphragmatic hernia without obstruction or gangrene; K63.5 Polyp of colon; K57.30 Diverticulosis of large intestine without perforation or abscess without bleeding; K64.4 Residual hemorrhoidal skin tags; K59.09 Other constipation; D50.0 Iron deficiency anemia secondary to blood loss (chronic); I25.10 Atherosclerotic heart disease of native coronary artery without angina pectoris; I11.0 Hypertensive heart disease with heart failure; I50.9 Heart failure, unspecified; E11.9 Type 2 diabetes mellitus without complications; E03.9 Hypothyroidism, unspecified; E78.5 Hyperlipidemia, unspecified; G47.33 Obstructive sleep apnea (adult) (pediatric); N19 Unspecified kidney failure; H53.462 Homonymous bilateral field defects, left side; H53.461 Homonymous bilateral field defects, right side; M81.0 Age-related osteoporosis without current pathological fracture; E55.9 Vitamin D deficiency, unspecified; Z28.21 Immunization not carried out because of patient refusal; Z77.22 Contact with and (suspected) exposure to environmental tobacco smoke (acute) (chronic); Z85.54 Personal history of malignant neoplasm of ureter; Z86.73 Personal history of transient ischemic attack (TIA), and cerebral infarction without residual deficits; Z86.79 Personal history of other diseases of the circulatory system; Z95.5 Presence of coronary angioplasty implant and graft
CPT/HCPCS: 36415; 71046; 80048; 81001; 82607; 82728; 82746; 82948; 83036; 83540; 83550; 83735; 84443; 84466; 85014; 85018; 85025; 85027; 85610; 85730; 87040; 87045; 87046; 87324; 87427; 88305; 96361; 96374; 96376; 97110; 97161; 97165; 97530; A9270; C1726; G0378; J1815; J2405; J2704; J7030; J7120

== ENCOUNTER 2020-12-28 21:23 | Emergency (ER) | payer MEDICARE, BC, SELFPAY ==
[2020-12-28 21:23] VITALS: BP 140/112; PULSE 102; RESP 20; TEMP 36.7; O2SAT 98
--- NOTE | 2020-12-28 21:44 | ED.GIBLEED ---
HPI - GI Bleed General Chief complaint: GI Bleed Stated complaint: rectal bleed Time Seen by Provider: 12/28/20 21:44 History of Present Illness HPI Narrative: Bright red blood in toilet tonight. She was discharged from the hospital today after an admission for the same. During her hospital stay she had IRC for external hemorrhoids. She also had ischemic colitis, and gastritis found, although from what I can tell neither of these were determined to be sources of bleeding. No abdominal pain, nausea, vomiting. Related Data Home Medications Medication Instructions Recorded Confirmed Myrbetriq 50 mg PO DAILY 11/24/20 12/25/20 Restasis 1 drp EACH EYE DAILY 11/24/20 12/25/20 Zyrtec 10 mg PO DAILY 11/24/20 12/25/20 acetaminophen 500 mg PO Q6H PRN 11/24/20 12/25/20 acidophilus-pectin, citrus 1 cap PO DAILY 11/24/20 12/25/20 [Acidophilus Probiotic] alendronate-vitamin D3 1 tablet PO WEEKLY 11/24/20 12/25/20 aspirin 81 mg PO DAILY 11/24/20 12/25/20 baclofen 20 mg PO BID 11/24/20 12/25/20 benzonatate 200 mg PO BID PRN 11/24/20 12/25/20 calcium carbonate-vitamin D3 1 tablet PO DAILY 11/24/20 12/25/20 fluticasone propionate 1 spray INTRANASAL DAILY 11/24/20 12/25/20 furosemide [Lasix] 20 - 40 mg PO DAILY 11/24/20 12/25/20 hydrocodone-acetaminophen 0.5 tablet PO Q8H PRN 11/24/20 12/25/20 isosorbide mononitrate 30 mg PO DAILY 11/24/20 12/25/20 levothyroxine 50 mcg PO DAILY 11/24/20 12/25/20 magnesium 400 mg PO DAILY 11/24/20 12/25/20 montelukast [Singulair] 10 mg PO DAILY 11/24/20 12/25/20 dmfmshajpyer-Aq-jmpg-minerals 1 tablet PO DAILY 11/24/20 12/25/20 nitroglycerin 0.4 mg SUBLINGUAL Q5-15M PRN 11/24/20 12/25/20 rosuvastatin [Crestor] 20 mg PO DAILY 11/24/20 12/25/20 solifenacin [Vesicare] 5 mg PO DAILY 11/24/20 12/25/20 vitamin B complex [B 1 tablet PO DAILY 11/24/20 12/25/20 Complex-Vitamin B12] Allergies Allergy/AdvReac Type Severity Reaction Status Date / Time adhesive Allergy Unknown Hives Verified 12/26/20 10:11 Corticosteroids Allergy Unknown Hives Verified 12/26/20 10:11 (Glucocorticoids) levofloxacin Allergy Unknown Hives Verified 12/26/20 10:11 methylprednisolone Allergy Unknown Hives Verified 12/26/20 10:11 metronidazole Allergy Unknown Hives Verified 12/26/20 10:11 Review of Systems Review of Systems: All systems reviewed & are unremarkable except as noted in HPI and below Constitutional: Constitutional: Denies fever(s) and Denies weakness Cardiovascular: Cardiovascular: Denies chest pain Respiratory: Respiratory: Denies dyspnea Gastrointestinal: Gastrointestinal: Denies abdominal pain, Denies nausea and Denies vomiting Genitourinary: Genitourinary: Reports no additional female genitourinary complaints Neurologic: Denies syncope [facility] Past Medical History Medical History CAD (coronary artery disease) CHF (congestive heart failure) Echocardiogram October 2020 EF 60-65%, grade 1 diastolic dysfunction, mild pulmonary hypertension with RVSP of 37, [id number] tricuspid regurgitation Chronic constipation Colon, diverticulosis Diabetes mellitus Diet-controlled Dysphagia Esophageal ring Gastritis GERD (gastroesophageal reflux disease) Hemorrhoid History of atrial fibrillation No longer on anticoagulation due to GI bleeding History of cancer of ureter History of CVA (cerebrovascular accident) At age 89 years old contractures of left hand; in the last several years the patient has had numerous TIAs. 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
[2020-12-28 22:40] LABS: Basophils Percent Auto 0.4 % (0.2-1.2); Eosinophils Absolute Auto 0.2 K/mm3 (0-0.3); Eosinophils Percent Auto 2.4 % (0-4.4); Hematocrit 29.2 % (37.0-47.0); Immature Granulocyte Absolute 0.04 K/mm3 (0.00-0.031); Immature Granulocyte Percent A 0.4 % (0-0.5); Lymphocytes Absolute Auto 1.88 K/mm3 (0.9-3.2); Lymphocytes Percent Auto 20.3 % (18.3-44.2); Mean Corpuscular HGB Conc 30.8 g/dl (32-36); Mean Platelet Volume 10.3 fl (7.4-10.4); Monocytes Absolute Auto 1.2 K/mm3 (0.1-0.6); Monocytes Percent Auto 13.4 % (2.6-8.5); Neutrophils Absolute Auto 5.8 K/mm3 (1.3-6.7); Neutrophils Percent Auto 63.1 % (45.5-73.1); Platelet Count Result 240 k/mm3 (150-375); Red Blood Count 3.21 M/mm3 (4.2-5.4); Red Cell Distribution Width 15.8 % (11.5-14.5); White Blood Count 9.2 K/mm3 (4.5-10.0)
[2020-12-28 22:53] LABS: Anion Gap 6 mmol/L (8-16); Blood Urea Nitrogen 12 mg/dL (7-17); Calcium 8.4 mg/dL (8.4-10.2); Carbon Dioxide 30 mmol/L (22-30); Chloride 105 mmol/L (98-107); Estimated CRCL calculation 42 ml/min; Estimated Glomerular Filt Rate 60; Glucose 120 mg/dL (65-105); Sodium 141 mmol/L (137-145)
[2020-12-28 23:45] VITALS: BP 138/94; PULSE 97; RESP 18; TEMP 36.9; O2SAT 100
--- NOTE | 2020-12-29 00:08 | PC.NURSE ---
[facility] here.
== END 2020-12-29 | disposition home or self-care (01) ==
PROVIDERS: Emergency Provider Emergency Medicine; PCP Internal Medicine
DX: K64.9 Unspecified hemorrhoids (principal); I25.10 Atherosclerotic heart disease of native coronary artery without angina pectoris; I11.0 Hypertensive heart disease with heart failure; I50.9 Heart failure, unspecified; K57.90 Diverticulosis of intestine, part unspecified, without perforation or abscess without bleeding; E11.9 Type 2 diabetes mellitus without complications; K21.9 Gastro-esophageal reflux disease without esophagitis; E78.5 Hyperlipidemia, unspecified; E03.9 Hypothyroidism, unspecified; I48.91 Unspecified atrial fibrillation; G47.30 Sleep apnea, unspecified
CPT/HCPCS: 36415; 80048; 85025; 99283

== ENCOUNTER 2021-01-26 15:41 | Outpatient (CLI) | payer MEDICARE, BC, SELFPAY ==
[2021-01-26 16:19] LABS: Hematocrit 33.1 % (37.0-47.0); Hemoglobin 9.6 g/dL (12.0-15.0); Mean Corpuscular Hemoglobin 25.5 pg (26-34); Mean Platelet Volume 10.6 fl (7.4-10.4); Platelet Count Result 274 k/mm3 (150-375); Red Blood Count 3.76 M/mm3 (4.2-5.4); Red Cell Distribution Width 15.5 % (11.5-14.5); White Blood Count 6.2 K/mm3 (4.5-10.0)
[2021-01-26 16:31] LABS: Alanine Aminotransferase 13 U/L (4-35); Alkaline Phosphatase 73 U/L (38-126); Anion Gap 6 mmol/L (8-16); Aspartate Amino Transferase 24 U/L (14-36); Bilirubin,Total < 0.1 mg/dL (0.2-1.3); Blood Urea Nitrogen 21 mg/dL (7-17); Calcium 8.7 mg/dL (8.4-10.2); Carbon Dioxide 31 mmol/L (22-30); Chloride 104 mmol/L (98-107); Estimated Glomerular Filt Rate 47; Glucose 133 mg/dL (65-105); Potassium 4.1 mmol/L (3.4-5.0); Sodium 141 mmol/L (137-145)
== END 2021-01-26 15:42 | disposition home or self-care (01) ==
LOC: ANHLAB 15:43
PROVIDERS: PCP Internal Medicine; Visit Provider Internal Medicine Gastroenterology
DX: D64.9 Anemia, unspecified (principal); K55.9 Vascular disorder of intestine, unspecified; R11.2 Nausea with vomiting, unspecified; I20.8 Other forms of angina pectoris
CPT/HCPCS: 36415; 80053; 85027

== ENCOUNTER 2021-04-28 11:29 | Outpatient (CLI) | payer MEDICARE, BC, SELFPAY ==
--- NOTE | ~2021-04-28 | US_ITS ---
EXAMINATION:US venous doppler LE BI INDICATION:Pain leg pain TECHNIQUE: Multiple grayscale, color flow and Doppler images of the right and left lower extremity de ep venous systems were obtained and reviewed. COMPARISON:02/11/2017 FINDINGS: The common femoral, superficial femoral and popliteal veins demonstrate normal respiratory variation, augmentation and compressibility. Color flow is also seen within the posterior tibial, pe roneal, greater saphenous and profunda veins. IMPRESSION: 1: No lower extremity deep venous thrombosis. Reviewed, dictated and finalized at location A.
== END 2021-04-28 11:30 | disposition home or self-care (01) ==
LOC: ANHIMG 11:33
PROVIDERS: PCP Internal Medicine; Visit Provider Nurse Practitioner Adult Health
DX: M79.605 Pain in left leg (principal); M79.604 Pain in right leg
CPT/HCPCS: 93970

== ENCOUNTER 2022-08-23 10:09 | Inpatient (IN) | payer MEDICARE, BC, SELFPAY ==
[2022-08-23] VITALS (7 sets, daily range): BP systolic 126–147; BP diastolic 47–65; PULSE 56–65; RESP 12–18; TEMP 36.2–36.5; O2SAT 95–100; BMI 31.5
--- NOTE | ~2022-08-23 | MR_ITS ---
EXAMINATION: MR cervical spine wo con DATE: 08/24/2022 10:04 INDICATION: Right arm weakness TECHNIQUE: Magnetic resonance imaging (MRI) of the cervical spine was performed without intravenous c ontrast. Sequences included sagittal T2-weighted FSE, sagittal T2-weighted FS FSE, sagittal T1-weight ed FSE, axial MERGE and axial T2-weighted FSE. COMPARISON: Cervical spine radiographs dated 01/26/2015 and MRI dated 03/15/2014 FINDINGS: Mild upper thoracic levocurvature. Unchanged 2-3 mm anterolisthesis C3 on C4. Unchanged 2 mm anteroli sthesis C7 on T1. C5-C7 anterior spinal fusion with metallic magnetic field artifact associated with associated anterior plate and screw fixation. Unfused vertebral body heights are normal. Bone marrow signal intensity is normal. Severe disc height loss at C3-C4 and C4-C5. Mild disc height loss at C7- T1. Is mild upper thoracic levocurvature with mild to moderate right-sided predominant disc height lo ss at T2-T3 through T4-T5. Cord signal intensity is normal. The soft tissues are unremarkable. The fo llowing disc levels are specifically discussed: C2-C3: Disc is bulging. There is mild bilateral uncovertebral joint osteoarthritis. There is right an d severe left facet joint osteoarthritis. There is no neural foraminal stenosis. There is mild centra l canal stenosis. C3-C4: Disc is bulging. There is moderate bilateral uncovertebral joint osteoarthritis. There is noah re bilateral facet joint osteoarthritis. There is mild left and mild to moderate right neural foramin al stenosis. There is mild central canal stenosis. C4-C5: Disc is bulging. There is mild left and moderate right uncovertebral joint osteoarthritis. The re is moderate left and severe right facet joint osteoarthritis. There is mild left and moderate righ t neural foraminal stenosis. There is mild central canal stenosis. C5-C6: Disc space and uncovertebral joints are fused without significant hypertrophic change. Bilater al facet joints are fused. There is mild right neural foraminal stenosis. There is no central canal s tenosis. C6-C7: Disc space is fused with mild hypertrophic change at the bilateral uncovertebral joints. There is left and moderate right facet joint osteoarthritis. There is no neural foraminal stenosis. There is no central canal stenosis. C7-T1: The disc does not extend beyond the more posterior superior endplate of T1. There is mild left uncovertebral joint osteoarthritis. There is severe bilateral facet joint osteoarthritis. There is m ild bilateral neural foraminal stenosis. There is minimal central canal stenosis. IMPRESSION: 1. Severe cervical spondylosis with instrumented C5-C7 anterior spinal fusion. 2. Mild upper thoracic levocurvature with moderate spondylosis. Reviewed, dictated and finalized at location A. LEADER
--- NOTE | ~2022-08-23 | CT_ITS ---
EXAMINATION: CT brain wo con DATE: 08/23/2022 12:02 INDICATION: Right upper extremity paresis TECHNIQUE: Computed tomography (CT) of the head was performed without intravenous contrast. The mA wa s adjusted according to patient size. Iterative reconstruction technique was employed. Exam dose: 60 5.33 mGy-cm total exam DLP. COMPARISON: 02/08/2017 CT brain, CTA brain/carotid FINDINGS: Stable chronic right basal ganglia, thalamic and gomez radiata infarcts. Prominent bilateral carotid siphon and particularly prominent right middle cerebral artery calcificat ions. Moderate central and cortical cerebral and cerebellar atrophy. No intracranial mass lesion or hemorrhage, midline shift or mass effect effect or acute subdural or e pidural hematoma. The mastoid air cells are normally developed and aerated. There is nodular mild soft tissue thickenin g of the left maxillary sinus and patchy soft tissue thickening the ethmoid air cells bilaterally. Th e paranasal sinuses are otherwise unremarkable. No fracture or bone destruction of the cranial vault is detected. IMPRESSION: Chronic right basal ganglia, thalamic and right gomez radiata infarcts Cerebral atherosclerosis and chronic small vessel ischemic changes of the cerebral white matter No acute intracranial finding or significant change since 02/08/2017 Reviewed, dictated and finalized at Location A. Reviewed, dictated and finalized at location A. T SHOP ASSISTANT IMPRESSION: Chronic right basal ganglia, thalamic and right gomez radiata inf arcts Cerebral atherosclerosis and chronic small vessel ischemic changes of the cereb ral white matter No acute intracranial finding or significant change since 02/08/2017
--- NOTE | ~2022-08-23 | XR_ITS ---
XR chest 2V DATE: 08/23/2022 10:56 INDICATION: Chest pain, right-sided weakness. TECHNIQUE: PA and lateral views COMPARISON: 12/27/2020 AP and lateral chest FINDINGS: Cardiomegaly. Thoracic and abdominal aortic calcification. No pulmonary infiltrate or consolidation, pleural effusion or pulmonary vascular congestion or pneumo thorax. Diffuse osteopenia. Severe bilateral glenohumeral osteoarthritis. Status post cholecystectomy. IMPRESSION: Cardiomegaly, aortic atherosclerosis No active pulmonary disease or significant change since 12/27/2020 Reviewed, dictated and finalized at location A. P CARRIER
--- NOTE | ~2022-08-23 | CT_ITS ---
EXAMINATION: CTA BRAIN/CAROTID DATE: 08/24/2022 10:30 INDICATION: Right upper extremity weakness. TECHNIQUE: Computed tomographic angiography (CTA) of the head and neck was performed with 100 mL Omni paque-350 intravenous contrast. Multiplanar reconstructions and maximum intensity projection 3D-recon structions of the carotid arteries and of the intracranial arteries were created by the technologist on a separate workstation. Precontrast CT of the head was also obtained. Automated exposure control and iterative reconstruction technique were employed.The dose-length product was 1504.26 mGy-cm. COMPARISON: Head CT dated 08/23/2022, brain MR dated 08/24/[address] brain [address] carotid CT angiogram da yesy 02/08/2017 FINDINGS: Carotid arteries: Visualized aortic arch is normal in caliber with no dissection. Small amount of nonhemodynamically si gnificant atherosclerotic plaque along the aortic arch and at the origins of the right vertebral and left subclavian arteries. The right innominate, common carotid and subclavian arteries are tortuous a s is the proximal left vertebral artery. There is atherosclerotic plaque with 0% stenosis of the righ t and left carotid bulbs relative to normal distal artery lumen diameter (NASCET criteria). Cervical soft tissues are unremarkable. Biapical pleural-parenchymal scarring. Small posterior layering left p leural effusion. Mosaic attenuation in the visualized upper lungs likely related to combination of ex piratory phase of imaging and mild subsegmental air trapping related to small airway disease. Severe cervical spondylosis with C5-C7 anterior spinal fusion with plate and screw fixation. There is calcif ied pannus surrounding the dens with likely associated erosion at the posterior base of the dens. Head: No acute intracranial hemorrhage, acute infarction or abnormal extra axial fluid collection. Again se en is a moderate-sized region of encephalomalacia consistent with chronic infarct involving the posterior right lentiform nucleus, small portion of the right thalamus, the right frontal gomez radiata and small portion of the body of the caudate nucleus. There is mild scattered white matter hy poattenuation consistent with chronic small vessel ischemic disease. Symmetric prominence of the sulc i and subarachnoid spaces overlying the convexities consistent with moderate age-appropriate diffuse cerebral volume loss. Ventricles are normal and symmetric. No mass/mass effect. No abnormally enhanc ing brain lesions identified. Changes of bilateral intraocular lens replacement. The orbits, paranasa l sinuses and mastoid air cells are normal. Intracranial arteries Small amount of nonhemodynamically significant atherosclerotic plaque along the left carotid siphon. More prominent atherosclerotic plaque at the right carotid siphon with moderate, 60% stenosis at the ophthalmic segment of the intracranial right internal carotid artery. There is additional multifocal mild, <50% stenosis along the more distal right internal carotid artery. There is no hemodynamically significant stenosis in the basilar or bilateral intracranial vertebral arteries. Vertebral arteries are codominant. There are no aneurysms identified. The left A1 and bilateral P1 segments are patent. The right anterior cerebral artery supplied via the left A1 segment and a patent anterior communicati ng artery. Cerebral arterial arborization appears symmetric. IMPRESSION: 1. Small amount of atherosclerotic plaque with 0% stenosis of the right and left carotid bulbs relati ve to normal distal artery lumen diameter (NASCET criteria). 2. Atherosclerotic plaque along the intracranial right internal carotid artery with moderate, 60% adrienne nosis at the ophthalmic segment. 3. Chronic moderate sized infarct involving portions of the right basal ganglia, thalamus and right frontal gomez radiata.
--- NOTE | ~2022-08-23 | CT_ITS ---
EXAMINATION: CTA chest abdomen pelvis DATE: 08/23/2022 12:03 INDICATION: Chest pain. Evaluate for possible aortic dissection TECHNIQUE: Computed tomography (CT) of the chest, abdomen, and pelvis was performed with 100 CC Omnip aque 350 intravenous contrast. Automated exposure control and iterative reconstruction technique were employed. Exam dose: 711.99 mGy-cm total exam DLP. COMPARISON: 08/19/2022 PA and lateral chest 09/18/2017 CT abdomen pelvis FINDINGS: CHEST CT: There is posterior basilar left lower lobe infiltrate and/or atelectasis. Cardiomegaly. Coronary artery calcification. There is thoracic aortic and great vessel calcification. No thoracic aortic aneurysm or dissection. T he ascending aorta measures up to approximately 3.3 cm maximal diameter, the mid aortic arch approxim ately 2.4 cm diameter, the descending thoracic aorta approximately 2.1 cm diameter. No hilar or mediastinal mass lesion or lymphadenopathy. No pericardial or pleural effusion. ABDOMEN/PELVIS CT: Status post cholecystectomy. No hepatic, splenic, pancreatic, and adrenal or renal space-occupying ma ss lesion is evident. No bile duct or pancreatic duct dilatation. No urinary tract calculus or hydroureteronephrosis. There is atherosclerotic calcification but normal caliber of the abdominal aorta. No intraperitoneal or retroperitoneal or pelvic mass lesion or adenopathy or ascites is detected. Status post hysterectomy. The urinary bladder is unremarkable. There is a left inguinal hernia containing nonobstructed small bowel. There are numerous diverticula of the left colon, particularly sigmoid colon; no CT evidence of diver ticulitis. No bowel obstruction is noted. There is a prominent amount of fecal material in transverse and ascending colon and cecum. No bowel obstruction or intraperitoneal free air. Subacute healing anterior right third rib fracture. Status post anterior cervical spine surgical fusion. Diffuse osteopenia. Severe bilateral glenohumeral osteoarthritis. Mild chronic anterior wedge compression fracture deformity of T12. Degenerative disc disease throughout the lumbar spine with particularly severe degenerative disc dise ase at L5-S1. Grade 1 anterolisthesis at L4-5 due to degenerative change at the apophyseal joints. Bilateral hip osteoarthritis. No suspicious osteolytic or osteoblastic lesions are noted. IMPRESSION: No thoracic or abdominal aortic aneurysm or dissection Posterior basilar left lower lobe infiltrate and/atelectasis Left inguinal hernia containing nonobstructed small bowel Diverticulosis of the colon; no CT evidence of diverticulitis Subacute healing anterior right third rib fracture Cardiomegaly Status post cholecystectomy Status post hysterectomy Reviewed, dictated and finalized at Location A. Reviewed, dictated and finalized at location A. ER UP
--- NOTE | ~2022-08-23 | MR_ITS ---
EXAMINATION: MR brain/brain stem wo con DATE: 08/24/2022 10:04 INDICATION: Right arm weakness TECHNIQUE: Magnetic resonance imaging (MRI) of the brain and brainstem was performed without intraven ous contrast. Sequences included sagittal and axial T1-weighted SE, axial diffusion-weighted FS SE, a xial T2*-weighted GRE, axial 3D SWAN, axial T2-weighted FLAIR, and axial T2-weighted FSE. Apparent di ffusion coefficient (ADC) maps were created. COMPARISON: 02/08/2017 FINDINGS: Again seen is a moderate-sized region of encephalomalacia consistent with chronic infarct involving t he posterior right lentiform nucleus, small portion of the right thalamus, the right frontal gomez r adiata and small portion of the body of the caudate nucleus. There are no areas of restricted diffusi on to suggest acute infarction. No intracranial hemorrhage or abnormal intracranial mass lesion. Ther e are scattered areas of nonspecific increased T2-weighted signal intensity in the cerebral white mat ter, predominantly involving the deep and periventricular white matter. There are no intraparenchymal signal abnormalities seen on the other pulse sequences. The ventricles are symmetric and normal in s ize. There are no abnormal extra-axial fluid collections. Flow voids are seen in the cerebral arterie s on the T2-weighted sequences consistent with their expected patency. Changes of bilateral intraocul ar lens replacement. Mucosal thickening in the bilateral ethmoid sinuses. IMPRESSION: 1. No acute intracranial process. 2. Unchanged moderate sized chronic infarct involving portions of the right basal ganglia, thalamus a nd right frontal gomez radiata. 3. No significant change in scattered nonspecific small foci of white matter T2 hyperintensity is wit hin normal limits for age and consistent with chronic small vessel ischemic disease. Reviewed, dictated and finalized at location A. INE MOLDER IMPRESSION: 1. No acute intracranial process. 2. Unchanged moderate sized chronic infarct involving portions of the right bas al ganglia, thalamus and right frontal gomez radiata. 3. No significant change in scattered nonspecific small foci of white matter T2 hyperintensity is within normal limits for age and consistent with chronic sma ll vessel ischemic disease.
--- NOTE | 2022-08-23 10:19 | ECG_ITS ---
Measurements Intervals [place] Rate: 59 P: 12 CA: 183 QRS: -34 QRSD: 92 T: -15 QT: 429 QTc: 428 Interpretive Statements SINUS BRADYCARDIA WITH SINUS ARRHYTHMIA LEFT VENTRICULAR HYPERTROPHY BORDERLINE ST-T WAVE ABNORMALITY- INFERIOR LEADS BASELINE ARTIFACT- I, II, III, AVR, AVL, AVF, V1-V6 BORDERLINE ECG COMPARED TO ECG 11/23/2020 23:21:24 SINUS BRADYCARDIA NOW PRESENT SINUS ARRHYTHMIA NOW PRESENT Electronically Signed On 08-23-2022 14:32:47 [facility] by Constantino Iraheta D.O.
[2022-08-23 10:34] LABS: Basophils Percent Auto 0.7 % (0.2-1.2); Eosinophils Absolute Auto 0.1 K/mm3 (0-0.3); Eosinophils Percent Auto 1.3 % (0-4.4); Hematocrit 39.2 % (37.0-47.0); Hemoglobin 12.3 g/dL (12.0-15.0); Immature Granulocyte Absolute 0.01 K/mm3 (0.00-0.031); Immature Granulocyte Percent A 0.2 % (0-0.5); Lymphocytes Absolute Auto 1.66 K/mm3 (0.9-3.2); Lymphocytes Percent Auto 27.7 % (18.3-44.2); Mean Corpuscular HGB Conc 31.4 g/dl (32-36); Mean Corpuscular Hemoglobin 29.7 pg (26-34); Mean Corpuscular Volume 94.7 fl (80-100); Mean Platelet Volume 10.1 fl (7.4-10.4); Monocytes Absolute Auto 0.9 K/mm3 (0.1-0.6); Neutrophils Absolute Auto 3.3 K/mm3 (1.3-6.7); Neutrophils Percent Auto 55.1 % (45.5-73.1); Platelet Count Result 273 k/mm3 (150-375); Red Blood Count 4.14 M/mm3 (4.2-5.4); Red Cell Distribution Width 15.9 % (11.5-14.5)
[2022-08-23 10:44] LABS: Alanine Aminotransferase 27 U/L (6-35); Albumin Level 4.1 g/dL (3.5-5.1); Alkaline Phosphatase 52 U/L (38-126); Anion Gap 9 mmol/L (8-16); Aspartate Amino Transferase 36 U/L (14-36); Bilirubin,Total 0.3 mg/dL (0.2-1.3); Blood Urea Nitrogen 41 mg/dL (7-17); Calcium 7.8 mg/dL (8.4-10.2); Carbon Dioxide 27 mmol/L (22-30); Chloride 106 mmol/L (98-107); Estimated CRCL calculation 26 ml/min; Estimated Glomerular Filt Rate 39; Glucose 133 mg/dL (65-110); Potassium 3.6 mmol/L (3.4-5.0); Sodium 142 mmol/L (137-145)
[2022-08-23 10:50] LABS: Appearance Urine Clear (Clear); Bilirubin Urine Negative (Negative); Blood Urine Trace-intact (Negative); Color Urine Yellow (Yellow); Glucose Urine UA Negative (Negative); Ketones Urine Negative (Negative); Leukocyte Esterase Ur Negative LEU/UL (Negative); Nitrate Urine Negative (Negative); Protein Urine Negative (Negative); Urobilinogen Urine 0.2 mg/dL (<2.0); pH Urine 5.5 (5.0-9.0)
[2022-08-23 10:56] LABS: RBC Urine 0-2 /hpf (0-2); Squamous Epithelial Cell Urine Rare /hpf (Few); WBC Urine 0-3 /hpf
[2022-08-23 10:57] LABS: Add Urine Microscopic? YES
--- NOTE | 2022-08-23 11:48 | ED.WEAKNESS ---
HPI - Weakness General Chief complaint: Weakness Stated complaint: right sided weakness 0300, hx cva, poss tia Time Seen by Provider: 08/23/22 10:41 History of Present Illness HPI Narrative: This is an 87-year-old female with past medical history of childhood strokes with residual left-sided weakness, who hypertension, hypothyroidism, who presents to the emergency department complaining of right arm weakness and chest pain. She states she noted substernal chest pain, 6 out of 10 at approximately 3:00 this morning that resolved with 2 sublingual nitro. This morning she noted right arm weakness while talking on the phone. She states this has happened previously. She has no other complaints Related Data Home Medications Medication Instructions Recorded Confirmed Zyrtec 10 mg PO DAILY 11/24/20 12/25/20 acetaminophen 500 mg tablet 500 mg PO Q6H PRN Pain 11/24/20 12/25/20 acidophilus 100 million 1 cap PO DAILY 11/24/20 12/25/20 cell-pectin, citrus 10 mg capsule (Acidophilus Probiotic) alendronate 70 mg-cholecalciferol 1 tablet PO WEEKLY 11/24/20 12/25/20 (vitamin D3) 2,800 unit tablet aspirin 81 mg tablet,delayed 81 mg PO DAILY 11/24/20 12/25/20 release baclofen 10 mg tablet 20 mg PO BID 11/24/20 12/25/20 benzonatate 200 mg capsule 200 mg PO BID PRN Cough 11/24/20 12/25/20 calcium carb-vitamin D3 ER 600 mg 1 tablet PO DAILY 11/24/20 12/25/20 (1,500 mg)-500 unit tablet,ER 24 hr cyclosporine 0.05 % eye drops in a 1 drp EACH EYE DAILY 11/24/20 12/25/20 dropperette (Restasis) fluticasone propionate 50 1 spray intranasal DAILY 11/24/20 12/25/20 mcg/actuation nasal spray,suspension furosemide 20 mg tablet (Lasix) 20 - 40 mg PO DAILY 11/24/20 12/25/20 hydrocodone 10 mg-acetaminophen 0.5 tablet PO Q8H PRN Pain 11/24/20 12/25/20 325 mg tablet isosorbide mononitrate 30 mg 30 mg PO DAILY 11/24/20 12/25/20 tablet,extended release 24 hr levothyroxine 50 mcg tablet 50 mcg PO DAILY 11/24/20 12/25/20 magnesium 200 mg tablet 400 mg PO DAILY 11/24/20 12/25/20 mirabegron 50 mg tablet,extended 50 mg PO DAILY 11/24/20 12/25/20 release 24 hr (Myrbetriq) montelukast 10 mg tablet 10 mg PO DAILY 11/24/20 12/25/20 (Singulair) zpyjjpwwcyrp-Uj-emef-minerals 1 tablet PO DAILY 11/24/20 12/25/20 nitroglycerin 0.4 mg sublingual 0.4 mg sublingual Q5-15M PRN Chest 11/24/20 12/25/20 tablet Pain rosuvastatin 20 mg tablet (Crestor) 20 mg PO DAILY 11/24/20 12/25/20 vitamin B complex (B 1 tablet PO DAILY 11/24/20 12/25/20 Complex-Vitamin B12 tablet) solifenacin 5 mg tablet (Vesicare) 10 mg PO DAILY 01/26/21 Allergies Allergy/AdvReac Type Severity Reaction Status Date / Time adhesive Allergy Unknown Hives Verified 05/18/21 10:01 Corticosteroids Allergy Unknown Hives Verified 05/18/21 10:01 (Glucocorticoids) levofloxacin Allergy Unknown Hives Verified 05/18/21 10:01 methylprednisolone Allergy Unknown Hives Verified 05/18/21 10:01 metronidazole Allergy Unknown Hives Verified 05/18/21 10:01 Review of Systems Review of Systems: CONSTITUTIONAL: Denies fever, chills, or sweats. EYES: Denies visual changes, redness, or discharge. ENT: Denies rhinorrhea, congestion, sore throat, or otalgia. CARDIOVASCULAR: Denies chest pain, palpitations, or edema. RESPIRATORY: Denies cough or dyspnea. GASTROINTESTINAL: Denies abdominal pain, nausea, vomiting, or diarrhea. GENITOURINARY: Denies dysuria or hematuria. SKIN: Denies rash or itching. MUSCULOSKELETAL: Denies back pain, joint pain, or myalgia. NEUROLOGIC: Right arm weakness denies headache, numbness, dizziness PSYCHIATRIC: Denies anxiety or depression. [facility] Past Medical History Medical History (Updated 08/23/22 @ 15:05 by Ashvin Boyce MD) C. difficile colitis Cerebrovascular accident Patient had a stroke at age 10 with resultant contractures of left hand; in the last several years the patient has had numerous TIAs. With resultant, bilateral homonymous deficits. Chronic constip
[2022-08-23 13:08] LABS: Troponin I < 0.012 ng/mL (0.000-0.034)
[2022-08-23] MEDS: ACETAMINOPHEN 500 MG TABLET 1000 MG PO (14:05)
[2022-08-23 14:56] LABS: Influenza A QL RT-PCR Negative (Negative); Influenza B QL RT-PCR Negative (Negative); SARS-CoV-2 RNA PCR Negative
--- NOTE | 2022-08-23 15:00 | PM.IMHP ---
H&P: HPI History of Present Illness Date/Time: 08/23/22 15:00 Chief Complaint: Chest pain and right-sided weakness. Narrative: This is a very pleasant 87-year-old female with history of cerebrovascular disease, multiple strokes to include her 1st stroke at the age of 10 which has left her with resultant left-sided weakness, hypertension, coronary artery disease, paroxysmal atrial fibrillation, and hypothyroidism who presented to the emergency department for evaluation of right-sided weakness. She was wakened from sleep at about 03:00 with nonradiating, heavy substernal chest pain with feelings of overwhelming weakness. After her 2nd dose of nitroglycerin the chest pain seemed to ease up though she was not able to fall back asleep. Later on in the morning she reach for her phone to call her daughter and she was clumsy holding onto the phone and orange juice, and she eventually dropped both of them. She was brought to the ER for evaluation and her vital signs have been stable since arrival. Her BUN and creatinine are a bit elevated from baseline but her other labs seem stable compared to previous lab draws. CTA of the chest, abdomen, and pelvis did not show any acute findings however noted posterior basilar left lower lobe infiltrate/or atelectasis however she gives no history to suggest pneumonia. Brain CT showed chronic infarcts and no acute ranges from prior imaging in January 2017. Initial troponin was normal and her EKG did not show any significant changes compared to prior tracings aside from sinus bradycardia. She is being admitted in this setting for acute coronary syndrome and CVA rule out. Review of Systems Review of Systems: Twelve systems were reviewed. She has intermittent diplopia and blurry vision which is an ongoing issue. Today she felt as though she had difficulties seeing 1/2 of her vision but she does not recall which I it was and that is not problem currently. No syncope or near syncope. She denies vertigo. She has not had any recent cold or flu symptoms. No facial droop, dysarthria, or dysphagia. Daughter reports that the patient falls asleep easily and while in the emergency department the patient was noted to have a witnessed apneic episode with a decline in her oxygen saturation. She is not having a sensations of racing heart or palpitations. No pleuritic pain or shortness of breath at this time. Appetite has been okay and she denies nausea, vomiting, and diarrhea. She has lower extremity edema but has been doubling up on her Lasix recently with significant improvement in her swelling. Except as documented, all other systems were reviewed and are negative. [facility] Past Medical History Medical History (Updated 08/23/22 @ 22:10 by Roseann Francis PA-C) C. difficile colitis Cerebrovascular accident Patient had a stroke at age 10 with resultant contractures of left hand; in the last several years the patient has had numerous TIAs. With resultant, bilateral homonymous deficits. Chronic constipation Chronic kidney disease Colon, diverticulosis Coronary artery disease Diet-controlled diabetes mellitus Dysphagia Esophageal ring Gastritis Gastroesophageal reflux disease Heart failure with preserved ejection fraction Echocardiogram October 2020 EF 60-65%, grade 1 diastolic dysfunction, mild pulmonary hypertension with RVSP of 37, [id number] tricuspid regurgitation. Hemorrhoid History of atrial fibrillation No longer on anticoagulation due to GI bleeding History of cancer of ureter Hyperlipidemia Hypertension Hypothyroidism Ischemic colitis Obstructive sleep apnea Osteoporosis Rotator cuff tear arthropathy of both shoulders Spinal stenosis Type 2 diabetes mellitus Urge incontinence Vitamin D deficiency Surgical History Surgical History (Updated 08/23/22 @ 21:54 by Roseann Francis PA-C) History of appendectomy History of coronary artery stent placement Drug-eluting stent LAD November 2006 and at [facility]
--- NOTE | 2022-08-23 16:43 | PC.NURSE ---
Report received by DANN Alfaro with the ED at 1615.
--- NOTE | 2022-08-23 16:43 | ADMGEN ---
This patient, Nirmala Julian, was admitted to IMU Room 212-01 at 1633. Patient/family oriented to hospital policies and general routines including ID bracelet, bed and alarms, visiting hours, pain management, procedures, bathroom and other care routines, personal items, smoking policy, room service/diet, and visiting hours. Information on how to activate the Rapid Response Team has been discussed. Patient/Family are encouraged to report perceived risks to care and to ask questions if they do not understand what they are told or what they should do.
--- NOTE | 2022-08-23 20:26 | ECG_ITS ---
Measurements Intervals [place] Rate: 60 P: 56 MD: 167 QRS: -35 QRSD: 103 T: 1 QT: 439 QTc: 439 Interpretive Statements SINUS RHYTHM WITH SINUS ARRHYTHMIA LEFT AXIS DEVIATION LEFT VENTRICULAR HYPERTROPHY AND ST-T CHANGE MINIMAL Q WAVES- HIGH LATERAL LEADS BORDERLINE ST-T WAVE ABNORMALITY- INFERIOR LEADS BORDERLINE ECG COMPARED TO ECG 08/23/2022 10:20:52 NO SIGNIFICANT CHANGES Electronically Signed On 08-23-2022 20:59:57 CORE DRILLER HELPER by Constantino Iraheta D.O.
[2022-08-23 22:49] LABS: Troponin I < 0.012 ng/mL (0.000-0.034)
[2022-08-23 22:54] LABS: Hemoglobin A1C 7.5 % (<5.7)
[2022-08-23 23:14] LABS: Thyroid Stimulating Hormone Reflex 0.584 uIU/mL (0.465-4.68)
[2022-08-24] VITALS (17 sets, daily range): BP systolic 100–172; BP diastolic 47–68; PULSE 54–76; RESP 18–21; TEMP 35.8–36.6; O2SAT 94–98
[2022-08-24] MEDS: HYDROcodone/acetaminophen (*CRX) 10-325 MG TABLET 1 TAB PO ×2 (00:03→21:32)
[2022-08-24] MEDS: ROSUVASTATIN 10 MG TABLET 20 MG PO ×2 (00:13→21:31)
[2022-08-24] MEDS: ISOSORBIDE MONONITRATE 30 MG TAB.ER.24H PO ×2 (00:14→21:31)
[2022-08-24] MEDS: MONTELUKAST SODIUM 10 MG TABLET PO ×2 (00:14→21:31)
[2022-08-24] MEDS: SODIUM CHLORIDE 0.9% IV 1,000 ML 100 ML IV CONT (00:15)
--- NOTE | 2022-08-24 01:07 | PCRCNOTE ---
Apnea link placed on patient at 0005 on room air.
[2022-08-24 04:31] LABS: Basophils Percent Auto 0.7 % (0.2-1.2); Eosinophils Absolute Auto 0.1 K/mm3 (0-0.3); Eosinophils Percent Auto 1.6 % (0-4.4); Hematocrit 35.9 % (37.0-47.0); Hemoglobin 11.2 g/dL (12.0-15.0); Immature Granulocyte Absolute 0.01 K/mm3 (0.00-0.031); Immature Granulocyte Percent A 0.2 % (0-0.5); Lymphocytes Absolute Auto 1.62 K/mm3 (0.9-3.2); Lymphocytes Percent Auto 29.5 % (18.3-44.2); Mean Corpuscular HGB Conc 31.2 g/dl (32-36); Mean Corpuscular Hemoglobin 29.2 pg (26-34); Mean Corpuscular Volume 93.5 fl (80-100); Monocytes Absolute Auto 0.8 K/mm3 (0.1-0.6); Monocytes Percent Auto 13.8 % (2.6-8.5); Neutrophils Percent Auto 54.2 % (45.5-73.1); Platelet Count Result 235 k/mm3 (150-375); Red Blood Count 3.84 M/mm3 (4.2-5.4); Red Cell Distribution Width 15.8 % (11.5-14.5); White Blood Count 5.5 K/mm3 (4.5-10.0)
[2022-08-24 04:44] LABS: Anion Gap 4 mmol/L (8-16); Blood Urea Nitrogen 28 mg/dL (7-17); Carbon Dioxide 24 mmol/L (22-30); Chloride 113 mmol/L (98-107); Estimated CRCL calculation 40 ml/min; Estimated Glomerular Filt Rate > 60; Glucose 105 mg/dL (65-110); Potassium 3.9 mmol/L (3.4-5.0); Sodium 141 mmol/L (137-145)
[2022-08-24] MEDS: LEVOTHYROXINE SODIUM 50 MCG TABLET PO (05:05)
[2022-08-24 08:08] LABS: Glucose Point of Care 85 mg/dl (65-105)
[2022-08-24] MEDS: BUDESONIDE RESPULE NEB 0.5 MG/2 ML AMP INHALATION (08:41)
[2022-08-24] MEDS: ACIDOPHILUS/BULGARICUS CHEWABLE TABLET 1 TABLET BY MOUTH (08:53)
[2022-08-24] MEDS: ASPIRIN 81 MG ENTERIC TABLET PO (08:54)
[2022-08-24] MEDS: CHOLECALCIFEROL 1,000 UNITS TABLET 2000 UNITS PO (08:55)
[2022-08-24] MEDS: ENOXAPARIN 40 MG/0.4 ML SYRINGE SUB-Q (08:55)
[2022-08-24] MEDS: cycloSPORINE 0.4 ML OPHTH SOLUTION 1 DROP EACH EYE ×2 (08:56→18:39)
[2022-08-24] MEDS: FLUTICASONE PROPIONATE 0.05% NA SPR 16 GM BTL (*BKC) 1 SPRAY NASAL (08:56)
[2022-08-24] MEDS: FENOFIBRATE,MICRONIZED 48 MG TABLET PO (08:56)
[2022-08-24] MEDS: LORATADINE 10 MG TABLET PO (08:57)
[2022-08-24] MEDS: METOPROLOL SUCCINATE EXT REL 50 MG TABCR PO (08:58)
[2022-08-24] MEDS: MAGNESIUM OXIDE 400 MG TABLET PO (08:58)
[2022-08-24] MEDS: LOSARTAN POTASSIUM 50 MG TABLET PO (08:58)
[2022-08-24] MEDS: VITAMIN B COMPLEX CAPSULE 1 CAP PO (08:59)
[2022-08-24] MEDS: PANTOPRAZOLE 40 MG TABLET PO (08:59)
[2022-08-24] MEDS: POTASSIUM CHLORIDE 10 MEQ TABLET PO (08:59)
[2022-08-24] MEDS: MIRABEGRON 50 MG ER TABLET PO (08:59)
[2022-08-24] MEDS: THERAPEUTIC MULTIVITAMINS/MINERALS TAB (*BKC) 1 TABLET PO (08:59)
[2022-08-24] MEDS: VITAMIN E 400 UNIT CAPSULE PO (09:00)
[2022-08-24] MEDS: TOLNAFTATE 1% POWDER 45 GM BTL 1 APPLIC TOPICAL ×2 (09:00→21:31)
[2022-08-24 09:04] LABS: Troponin I < 0.012 ng/mL (0.000-0.034)
--- NOTE | 2022-08-24 09:04 | WPDNEURCNPN ---
Assessment and Plan Assessment and plan (1) Right hand weakness: Code(s): R29.898 - Other symptoms and signs involving the musculoskeletal system Status: Acute (2) History of stroke: Code(s): Z86.73 - Personal history of transient ischemic attack (TIA), and cerebral infarction without residual deficits Status: Acute (3) Type 2 diabetes mellitus: Code(s): E11.9 - Type 2 diabetes mellitus without complications Status: Acute (4) Coronary artery disease: Code(s): I25.10 - Atherosclerotic heart disease of ione coronary artery without angina pectoris Status: Acute (5) Chest pain: Code(s): R07.9 - Chest pain, unspecified Status: Acute Plan Nirmala Julian is a 87 year old female with a history of prior strokes (since childhood) with baseline left sided weakness, atrial fibrillation, hypertension, and hypothyroidism presenting for evaluation of right arm weakness. She has several risk factors for stroke as well as prior history of strokes, which is the highest concern. Other consideration is cervical radiculopathy, given neck pain and chronic RUE numbness. - Agree with MRI brain and MRI cervical spine -- if negative would need outpatient EMG/NCS - Will need CTA brain/carotid and surface echo w/ bubble study as part of stroke work-up - Continue Aspirin and Crestor Consult date: 08/24/22 Time Seen: 09:04 Reason for consult: RUE weakness HPI: Nirmala Julian is a 87 year old female with a history of prior strokes (since childhood) with baseline left sided weakness, atrial fibrillation, hypertension, and hypothyroidism presenting for evaluation of right arm weakness and chest pain. Patient woke up around 3AM on 08/23 due to chest pain, that resolved after taking nitroglycerin. Then later in the morning she noted that her right arm was weak. She also reports difficulty turning her head to the right as well as numbness of the right arm (but this seems to be chronic, and patient has a prior history of cervical fusion). She was brought to [place] emergency room where EKG showed sinus bradycardia. BP was in the 120s systolic. CT head showed multifocal areas of encephalomalacia suggestive or prior infarcts. CTA brain and carotid was not completed. She is not on any anticoagulation due to GI bleeding. She does take Aspirin 81mg and Crestor 20mg. HgbA1c from this admission is 7.5. LDL is 41. Patient reports her RUE strength is pretty much back to normal. She reports numbness of the right hand started a few days ago, and that her entire right arm is numb. She denies any other new focal symptoms. Review of Systems Constitutional: Constitutional: Reports weakness Eyes: Eyes: Reports no additional eye complaints ENT: Reports dysphagia Comments: chronic from prior stroke Cardiovascular: Cardiovascular: Reports chest pain Respiratory: Respiratory: Reports no additional respiratory complaints Gastrointestinal: Gastrointestinal: Reports no additional gastrointestinal complaints Genitourinary: Genitourinary: Reports urinary hesitancy Musculoskeletal: Musculoskeletal: Reports back pain and Reports neck pain Integumentary/Breasts: Skin/Breast: Reports as per HPI Neurologic: Reports as per HPI Psychiatric: Psychiatric: Reports no additional psychiatric complaints PMFSH Past Medical History Medical History C. difficile colitis Cerebrovascular accident Patient had a stroke at age 10 with resultant contractures of left hand; in the last several years the patient has had numerous TIAs. With resultant, bilateral homonymous deficits. Chronic constipation Chronic kidney disease Colon, diverticulosis Coronary artery disease Diet-controlled diabetes mellitus Dysphagia Esophageal ring Gastritis Gastroesophageal reflux disease Heart failure with preserved ejection fraction Echocardiogram October 2020 EF 60-65%, grade 1 diastolic dysfunctio
--- NOTE | 2022-08-24 09:22 | PM.CNCAR ---
Assessment and Plan Assessment and plan (1) Coronary artery disease: Code(s): I25.10 - Atherosclerotic heart disease of [place] coronary artery without angina pectoris Status: Acute (2) Chest pain: Code(s): R07.9 - Chest pain, unspecified Status: Acute (3) Heart failure with preserved ejection fraction: Code(s): I50.30 - Unspecified diastolic (congestive) heart failure Status: Acute Plan Atypical episode of chest pain with no recurrences. EKG without ischemic changes. Troponins negative x 2. Would continue ASA, statin, beta-amie, and Imdur. If third troponin is negative, then no further inpatient cardiac evaluation at this time and patient can follow-up with us as an outpatient. Of note, patient did report a fall about a month ago. CT scan showing subacute right rib fracture, and she is tender upon palpation to that area. Management as per hospitalist. History of Present Illness History of Present Illness Consult date/time: 08/24/22 09:22 Requesting physician: Roseann Francis PA-C Consult reason: chest pain Reason For Visit: PURNIMA/Chest Pain Narrative: We are being consulted for chest pain. This is an 87-year-old female with a history of CAD s/p ELBERT to the LAD in 12/20/2006 at [facility], history of paroxysmal atrial fibrillation not on anticoagulation due to a history of GI bleed, history of CVA, type 2 diabetes, hypertension, dyslipidemia who presented from her living facility for right sided weakness and chest pain. Patient reports that she felt substernal pressure like chest pain that occurred at rest and lasted for no more than 15 minutes. Self-resolved without recurrence. Has not had chest pain since being here. EKG without ischemic changes. First two troponins are negative. Of note, patient reports having a fall about a month ago, states she fell off the toilet and hurt her rib. CT scan done yesterday on admission showed subacute healing of the anterior third rib fracture. She is quite tender upon palpation to that region. Review of Systems Review of Systems: 12-point ROS obtained. Negative, unless stated in HPI. [facility] Past Medical History Medical History C. difficile colitis Cerebrovascular accident Patient had a stroke at age 10 with resultant contractures of left hand; in the last several years the patient has had numerous TIAs. With resultant, bilateral homonymous deficits. Chronic constipation Chronic kidney disease Colon, diverticulosis Coronary artery disease Diet-controlled diabetes mellitus Dysphagia Esophageal ring Gastritis Gastroesophageal reflux disease Heart failure with preserved ejection fraction Echocardiogram October 2020 EF 60-65%, grade 1 diastolic dysfunction, mild pulmonary hypertension with RVSP of 37, [id number] tricuspid regurgitation. Hemorrhoid History of atrial fibrillation No longer on anticoagulation due to GI bleeding History of cancer of ureter Hyperlipidemia Hypertension Hypothyroidism Ischemic colitis Obstructive sleep apnea Osteoporosis Rotator cuff tear arthropathy of both shoulders Spinal stenosis Type 2 diabetes mellitus Urge incontinence Vitamin D deficiency Surgical History Surgical History History of appendectomy History of coronary artery stent placement Drug-eluting stent LAD November 2006 and at [facility] History of fusion of cervical spine History of hysterectomy Had a oophorectomy at age 18 for benign tumor and subsequently later in life had a total abdominal hysterectomy with unilateral oophorectomy due to uterine fibroids and menorrhagia History of laparoscopic cholecystectomy History of lumpectomy of left breast History of rectal surgery Family History Family History Mother , At age 81 Dementia Father , At
[2022-08-24 10:09] LABS: Cholesterol 85 mg/dL (0-200); HDL Direct 31 mg/dL; Triglycerides 56 mg/dL (<150)
[2022-08-24 11:40] LABS: LDL Cholesterol Direct 41 mg/dL
[2022-08-24 11:53] LABS: Glucose Point of Care 99 mg/dl (65-105)
--- NOTE | 2022-08-24 14:01 | PM.IMPN ---
Progress Note: A&P Assessment and Plan (1) Chest pain: Code(s): R07.9 - Chest pain, unspecified Status: Acute Assessment and Plan: The patient presented to the ED for evaluation of chest pain. Troponin x3 normal. EKG showing no acute ST segment changes. CTA Ch/A/P showing no dissection but reveals LLL airspace disease and subacute healing anterior right 3rd rib fracture. She did fall recently which could explain the fracture. No cough to suggest PNA. She was seen by piping blocker here and appreciate their input. No plans for further evaluation while inpatient at this time. Continue aspirin, long-acting nitrate, beta-amie, and statin. (2) Right hand weakness: Code(s): R29.898 - Other symptoms and signs involving the musculoskeletal system Status: Acute Assessment and Plan: Patient also presented with right hand weakness/clumsiness. CT brain showing no acute findings but does show old CVAs. Cervical and brain MRI ordered. CTA head/neck ordered as well. Results pending. Continue Neurologic checks. PT/OT ordered. Continue ASA and statin. Neurology following and appreciate their input. (3) Acute renal failure superimposed on chronic kidney disease: Code(s): N17.9 - Acute kidney failure, unspecified; N18.9 - Chronic kidney disease, unspecified Status: Acute Assessment and Plan: BUN and creatinine were elevated from baseline on admission. She received IV fluids and Lasix held. levels better. Follow. (4) Heart failure with preserved ejection fraction: Code(s): I50.30 - Unspecified diastolic (congestive) heart failure Status: Acute Assessment and Plan: PURNIMA has resolved. No evidence of acute exacerbation. She had lower extremity edema on admission so venous Doppler ultrasounds ordered and are pending. Continue to hold Lasix for now. (5) Hypertension: Code(s): I10 - Essential (primary) hypertension Status: Acute Assessment and Plan: Patient's blood pressure was reviewed on 08/24 Blood pressure up and down Will continue current medications for now. (6) Coronary artery disease: Code(s): I25.10 - Atherosclerotic heart disease of [place] coronary artery without angina pectoris Status: Acute Assessment and Plan: Hx of CAD. As above. Continue medical managment (7) Suspected sleep apnea: Code(s): R29.818 - Other symptoms and signs involving the nervous system Status: Acute Assessment and Plan: Suspected sleep apnea so Apnealink performed showing AHI 63 and RI 67. She spent 68 minutes with SpO2<88%. Repeat ApneaLink on O2 at night. (8) Type 2 diabetes mellitus: Code(s): E11.9 - Type 2 diabetes mellitus without complications Status: Acute Assessment and Plan: The patient's blood glucose was reviewed on 08/24 Glucose remains well controlled. Continue AccuCheks covering with sliding scale. Hypoglycemia protocol available as needed. Continue to monitor (9) Hypothyroidism: Code(s): E03.9 - Hypothyroidism, unspecified Status: Acute Assessment and Plan: TSH normal. Continue levothyroxine. Subjective Date/time seen: 08/24/22 14:01 Interval history: 87yo female with CVA, CAD, HTN and pAFib here for right sided weakness and chest pain. Right arm weakness persistent. CP occurred last night lasting about 15 minutes described as 'heavy' and felt like the time she had her [place]. Has been off Amio for years. Recently started on cholesterol med, diabetic med and increase in her thyroid dose. She also has palpitations after waking fro naps but does not seem to happen when she wakes after longer periods of sleep. Exam Narrative: AF 97.0 172/59 69 18 96% ra Gen - NARD Chest - left mid and lower lung field inspiratory faint rhonchi, nml RR CV - irregularly irregular S1/S2. Tele showing NSR with sinus arrhythmias Abd - Soft, NT/ND, Positive BS
--- NOTE | 2022-08-24 15:58 | PCPTNOTE ---
PT waiting on test results prior to start of PT. Will Follow.
--- NOTE | 2022-08-24 16:00 | PCOTNOTE ---
OT waiting on test results prior to start of OT. Will Follow.
[2022-08-24 16:28] LABS: Glucose Point of Care 150 mg/dl (65-105)
[2022-08-24 20:21] LABS: Glucose Point of Care 146 mg/dl (65-105)
[2022-08-24] MEDS: ACETAMINOPHEN 500 MG TABLET PO (22:04)
[2022-08-25] VITALS (13 sets, daily range): BP systolic 123–166; BP diastolic 64–96; PULSE 58–91; RESP 18–20; TEMP 35.8–36.5; O2SAT 92–97
[2022-08-25] MEDS: BENZONATATE 100 MG CAPSULE 200 MG PO (03:23)
[2022-08-25] MEDS: ACETAMINOPHEN 500 MG TABLET PO (03:23)
[2022-08-25 05:04] LABS: Anion Gap 5 mmol/L (8-16); Blood Urea Nitrogen 18 mg/dL (7-17); Calcium 7.8 mg/dL (8.4-10.2); Carbon Dioxide 24 mmol/L (22-30); Chloride 108 mmol/L (98-107); Estimated CRCL calculation 40 ml/min; Estimated Glomerular Filt Rate > 60; Glucose 112 mg/dL (65-110); Potassium 4.4 mmol/L (3.4-5.0); Sodium 137 mmol/L (137-145)
--- NOTE | 2022-08-25 06:15 | PCRCNOTE ---
Patient was placed on apnea monitor at 2230. Nurse was notified that patient was placed monitor. Nurse reported to this RT that patient did not sleep all night. RT removed apnea monitor at 0530 as patient was still awake. RT will try to place on monitor tonight.
[2022-08-25] MEDS: LEVOTHYROXINE SODIUM 50 MCG TABLET PO (06:47)
[2022-08-25 08:07] LABS: Glucose Point of Care 109 mg/dl (65-105)
[2022-08-25] MEDS: cycloSPORINE 0.4 ML OPHTH SOLUTION 1 DROP EACH EYE (08:48)
[2022-08-25] MEDS: FLUTICASONE PROPIONATE 0.05% NA SPR 16 GM BTL (*BKC) 1 SPRAY NASAL (08:49)
[2022-08-25] MEDS: FENOFIBRATE,MICRONIZED 48 MG TABLET PO (08:49)
[2022-08-25] MEDS: ASPIRIN 81 MG ENTERIC TABLET PO (08:49)
[2022-08-25] MEDS: ENOXAPARIN 40 MG/0.4 ML SYRINGE SUB-Q (08:49)
[2022-08-25] MEDS: BUDESONIDE RESPULE NEB 0.5 MG/2 ML AMP INHALATION (08:50)
[2022-08-25] MEDS: POTASSIUM CHLORIDE 10 MEQ TABLET PO (08:50)
[2022-08-25] MEDS: TOLNAFTATE 1% POWDER 45 GM BTL 1 APPLIC TOPICAL (08:50)
[2022-08-25] MEDS: THERAPEUTIC MULTIVITAMINS/MINERALS TAB (*BKC) 1 TABLET PO (08:50)
[2022-08-25] MEDS: PANTOPRAZOLE 40 MG TABLET PO (08:50)
[2022-08-25] MEDS: LOSARTAN POTASSIUM 50 MG TABLET PO (08:51)
[2022-08-25] MEDS: MIRABEGRON 50 MG ER TABLET PO (08:51)
[2022-08-25] MEDS: VITAMIN B COMPLEX CAPSULE 1 CAP PO (08:51)
[2022-08-25] MEDS: MAGNESIUM OXIDE 400 MG TABLET PO (08:51)
[2022-08-25] MEDS: LORATADINE 10 MG TABLET PO (08:51)
[2022-08-25] MEDS: METOPROLOL SUCCINATE EXT REL 50 MG TABCR PO (08:51)
[2022-08-25 11:59] LABS: Glucose Point of Care 116 mg/dl (65-105)
--- NOTE | 2022-08-25 12:30 | WPDNEUROPN ---
Progress Note: A&P Assessment and Plan (1) Right hand weakness: Code(s): R29.898 - Other symptoms and signs involving the musculoskeletal system Status: Acute (2) History of stroke: Code(s): Z86.73 - Personal history of transient ischemic attack (TIA), and cerebral infarction without residual deficits Status: Acute Plan Nirmala Julian is a 87 year old female with a history of prior strokes (since childhood) with baseline left sided weakness, atrial fibrillation, hypertension, and hypothyroidism presenting for evaluation of right arm weakness. MRI brain negative for acute stroke. MRI cervical spine shows chronic changes. Patient's strength in the RUE seems to be at baseline. Symptoms likely related to cervical radiculopathy. - No further work-up needed from inpatient neuro standpoint - Patient has outpatient Neurology follow-up at [facility] this upcoming week; she may need outpatient EMG/NCS - Recommend providing referral for spine surgeon as outpatient Subjective Date/time seen: 08/25/22 12:30 Interval history: Nirmala Julian is a 87 year old female with a history of prior strokes (since childhood) with baseline left sided weakness, atrial fibrillation, hypertension, and hypothyroidism presenting for evaluation of right arm weakness and chest pain. Patient woke up around 3AM on 08/23 due to chest pain, that resolved after taking nitroglycerin. Then later in the morning she noted that her right arm was weak. She also reports difficulty turning her head to the right as well as numbness of the right arm (but this seems to be chronic, and patient has a prior history of cervical fusion). She was brought to [place] emergency room where EKG showed sinus bradycardia. BP was in the 120s systolic. CT head showed multifocal areas of encephalomalacia suggestive or prior infarcts. CTA brain and carotid was not completed. She is not on any anticoagulation due to GI bleeding. She does take Aspirin 81mg and Crestor 20mg. HgbA1c from this admission is 7.5. LDL is 41. MRI brain negative for acute stroke. MRI cervical spine showed severe spondylosis with C5-C7 anterior spinal fusion. CTA showed atherosclerotic plaque in the intracranial R ICA with 60% stenosis of the ophthalmic segment, as well as chronic infarct involving R basal ganglia, thalamus, and R frontal subcortical region. Patient reports feeling at baseline today. She was evaluated by physical therapy this morning. Review of Systems Constitutional: Constitutional: Reports no additional constitutional complaints Eyes: Eyes: Reports no additional eye complaints ENT: Reports system reviewed and no additional complaints, except as documented Comments: chronic from prior stroke Cardiovascular: Cardiovascular: Reports no additional cardiovascular complaints Respiratory: Respiratory: Reports no additional respiratory complaints Gastrointestinal: Gastrointestinal: Reports no additional gastrointestinal complaints Genitourinary: Genitourinary: Reports urinary hesitancy Musculoskeletal: Musculoskeletal: Reports back pain and Reports neck pain Integumentary/Breasts: Skin/Breast: Reports as per HPI Neurologic: Reports as per HPI Psychiatric: Psychiatric: Reports no additional psychiatric complaints Exam Const: General: comfortable and no acute distress HENMT: Mouth: Yes moist mucous membranes Eyes: General: appearance normal, both eyes and all related structures Pupils: Equal, round and reactive pupils present EOM: EOMs intact bilaterally Resp: Effort & Inspection: normal respiratory effort Cardio: Rate: regular rate Rhythm: regular rhythm GI: GI Palp: Yes Soft to palpation Auscultation: normal bowel sounds Skin: General skin exam: normal color Neuro: Other: AOx3, Pupils equal and reactive bilaterally, EOMI, face symmetric, facial sensation intact, tongue protrudes midline, palate midline. Shoulder shrug normal. Strength 4+/5 in RUE, 3/5 LUE proximally, with co
--- NOTE | 2022-08-25 14:07 | PCSTNOTE ---
Patient seen for bedside swallowing evaluation up in chair at bedside. Cooperative and very pleasant. Asked if she is going home today several times. Patient was given trials of thin liquid (uncontrolled amount) by straw. No coughing or choking, vocal quality clear after swallow. Refused pureed consistency because she is not hungry. Did accept a saltine cracker to eat by hand. Pre oral and oral stage within normal limits. Patient swallowed cracker bolus and used a sip of water through straw to help due to dryness of bolus. No signs of aspiration noted during bedside swallowing evaluation. Recommend: minced moist diet (level 5) and thin liquids. Pills can be put into applesauce or similar textured food (e.g. yogurt) to facilitate swallowing and reduce possibility of pocketing of lodging in pharyngeal area. Please follow swallowing precautions posted in chart. No speech therapy recommended. Thank you for the referral of this patient.
[2022-08-25 16:26] LABS: Glucose Point of Care 109 mg/dl (65-105)
--- NOTE | 2022-08-25 16:33 | PM.DS ---
DS: Admitting Diagnosis Discharge Date 08/25/22 Admitting Diagnosis Chest pain and right hand weakness. DS: Discharge Diagnosis Discharge Diagnosis (1) Chest pain: Code(s): R07.9 - Chest pain, unspecified Status: Acute (2) Right hand weakness: Code(s): R29.898 - Other symptoms and signs involving the musculoskeletal system Status: Acute (3) Acute renal failure superimposed on chronic kidney disease: Code(s): N17.9 - Acute kidney failure, unspecified; N18.9 - Chronic kidney disease, unspecified Status: Acute (4) Heart failure with preserved ejection fraction: Code(s): I50.30 - Unspecified diastolic (congestive) heart failure Status: Acute (5) Hypertension: Code(s): I10 - Essential (primary) hypertension Status: Acute (6) Coronary artery disease: Code(s): I25.10 - Atherosclerotic heart disease of [place] coronary artery without angina pectoris Status: Acute (7) Suspected sleep apnea: Code(s): R29.818 - Other symptoms and signs involving the nervous system Status: Acute (8) Type 2 diabetes mellitus: Code(s): E11.9 - Type 2 diabetes mellitus without complications Status: Acute (9) Hypothyroidism: Code(s): E03.9 - Hypothyroidism, unspecified Status: Acute DS: Summary Hospital Course Reason for hospitalization: 87yo female with CVA, CAD, HTN and pAFib here for right sided weakness and chest pain. Please see H&P for details Hospital Course: The patient presented to the ED for evaluation of chest pain. Troponin x3 normal. EKG showing no acute ST segment changes. CTA Ch/A/P showing no dissection but reveals LLL airspace disease and subacute healing anterior right 3rd rib fracture. She did fall recently which could explain the fracture. No cough to suggest PNA. She was seen by residential electrician here but felt atypical with no plans for further evaluation while inpatient at this time. We continued her aspirin, long-acting nitrate, beta-amie, and statin. Patient also presented with right hand weakness/clumsiness. CT brain showing no acute findings but does show old CVAs. Cervical MRI showing severe cervical spondylosis with instrumented C5-C7 anterior spinal fusion. Brain MRI showing no acute intracranial process but shows chronic infarcts. CTA head/neck showing only small amount of plaque with moderate 60% stenosis at the ophthalmic segment. Neurology was consulted and followed along. They recommended patient follow up with her neurologist and with a neurosurgeon. She worked with PT/OT and had clinical improvement in the right hand weakness. BUN and creatinine were mildly elevated from baseline on admission but improved with IV fluids. Suspected patient had sleep apnea so Apnealink performed showing AHI 63 and RI 67. She spent 68 minutes with SpO2<88%. Unable to repeat ApneaLink on nocturnal O2. Patient will need outpatient sleep study. She overall did well and was able to be discharged home on 08/25/22 Status at Discharge Cognitive/behavioral status at discharge: Stable Time Spent with Patient Time attestation: Total time spent providing and/or coordinating discharge services: 35 minutes Time spent: Greater than 30 minutes Specific discharge activities: d/c discussed with patient and family Exam Narrative: AF 97.7 160/89 66 20 93% ra Gen - NARD Chest - CTA bilaterally CV - RRR S1/S2 Abd - Soft, NT/ND, Positive BS Ext - No significant pedal edema Neuro - right fruit cutter 5-/5. speech clear. Psych - Nml mood and affect Skin - Warm and dry DS: Data Data Completed and Pending Labs on day of discharge: Labs from last 24 hours 08/25/22 08/25/22 08/25/22 16:18 11:39 07:54 Sodium Potassium Chloride Carbon Dioxide Anion Gap BUN Creatinine Estim Creat Clear Calc Estimated GFR Glucose POC Capillary Glucose 109 H 116 H 109 H Calcium 08/25/22 08/24/22 04:
== END 2022-08-25 17:02 | DRG 313 ==
LOC: ANHED 15:05 → ANHIMU 15:31
PROVIDERS: Physician Assistant; Student in an Organized Health Care Education/Training Program; Admitting Provider Internal Medicine; Emergency Provider Preventive Medicine Aerospace Medicine; PCP Internal Medicine; Visit Provider Internal Medicine
DX: R07.89 Other chest pain (principal); I69.354 Hemiplegia and hemiparesis following cerebral infarction affecting left non-dominant side; I13.0 Hypertensive heart and chronic kidney disease with heart failure and stage 1 through stage 4 chronic kidney disease, or unspecified chronic kidney disease; I50.32 Chronic diastolic (congestive) heart failure; N17.9 Acute kidney failure, unspecified; I25.10 Atherosclerotic heart disease of native coronary artery without angina pectoris; S22.31XD Fracture of one rib, right side, subsequent encounter for fracture with routine healing; W19.XXXD Unspecified fall, subsequent encounter; M47.892 Other spondylosis, cervical region; E03.9 Hypothyroidism, unspecified; N18.9 Chronic kidney disease, unspecified; E11.22 Type 2 diabetes mellitus with diabetic chronic kidney disease; R29.818 Other symptoms and signs involving the nervous system; R29.898 Other symptoms and signs involving the musculoskeletal system; I27.20 Pulmonary hypertension, unspecified; E78.5 Hyperlipidemia, unspecified; M10.9 Gout, unspecified; E55.9 Vitamin D deficiency, unspecified; Z20.822 Contact with and (suspected) exposure to COVID-19; Z95.5 Presence of coronary angioplasty implant and graft; Z98.1 Arthrodesis status; Z99.3 Dependence on wheelchair; Z79.899 Other long term (current) drug therapy
CPT/HCPCS: 36415; 70450; 70496; 70498; 70551; 71046; 71275; 72141; 74174; 80048; 80053; 80061; 81001; 82948; 83036; 84443; 84484; 85025; 85730; 87636; 92610; 93005; 94640; 96372; 97161; 97165; 99285; A9270; G0378; J1650; J7030; Q9967